=== PATIENT | female | born 1935 | race Caucasian/White ===

== ENCOUNTER 2016-08-01 17:11 | Emergency (ER) | payer MEDICARE ==
[~2016-08-01 17:11] MED LIST: ACET50TA PO; ASPI325T PO; ASPI81CH PO; BISAC5TA PO; COLA50CA3 PO; CORE25TA PO; FOSI PO; HYDR12.55 PO; LATA5OPD OU; PERC7.5T12 PO; SIMV40TA2 PO; SYNT75TA PO; TIMO5OPD OU
--- NOTE | 2016-08-01 18:43 | EDDOCDS ---
Nurse's Notes [facility] Name: Maria Del Rosario Thomas Age: 80 yrs Sex: Female : 1935 Arrival Date: 08/01/2016 Time: 17:11 Bed 18 Private MD: Diagnosis: Foreign body in esophagus-resolved Presentation: 08/01 17:28 Presenting complaint: Patient states: Patient approximately one hour ago choked on jmb meat, second time occurrence. Patient reports feeling better that issue has resolved. Adult Sepsis Screening: The patient does not have new or worsening altered mentation. Patient's respiratory rate is less than 22. Systolic blood pressure is greater than 100. Patient has a qSOFA score of 0- Negative Sepsis Screen. Suicide/Homicide risk assessment- the patient denies having any suicidal and/or homicidal ideations and does not present with any other emotional, behavioral or mental health complaints. Status: Patient is not a sales service supervisor or dependent. Transition of care: patient was not received from another setting of care. 17:28 Acuity: TRACY Level 3 [facility] 17:28 Method Of Arrival: Ambulance [facility] Triage Assessment: 17:35 General: Appears in no apparent distress, Behavior is appropriate for age, cooperative. [facility] Neurological: Level of Consciousness is awake, alert, obeys commands, Oriented to person, place, time. Respiratory: Airway is patent Respiratory effort is even, unlabored, Respiratory pattern is regular, symmetrical. Derm: Skin is pink, warm & dry. Musculoskeletal: Range of motion intact in all extremities. 18:42 Pain: Denies pain. [facility] Historical: - Allergies: an antibiotic; - Home Meds: 1. acetaminophen 650 mg Oral tab 2 tab as needed 2. aspirin 325 mg Oral TbEC 1 tab once daily 3. Dulcolax (bisacodyl) 5 mg Oral TbEC 1 tab as needed 4. docusate sodium 50 mg Oral cap 1 cap 2 times per day 5. fosinopril sodium 10 mg daily 6. hydrochlorothiazide 12.5 mg Oral cap 1 cap once daily 7. timolol maleate 0.5 % Opht drpd 1 drop once daily 8. simvastatin 40 mg Oral tab 1 tab once daily 9. Xalatan 0.005 % Opht drop 1 drop once daily 10. levothyroxine 75 mcg Oral tab 1 tab once daily - PMHx: Hypercholesterolemia; Hypertension; Hypothyroidism; Glaucoma; - PSHx: Appendectomy; - Social history: Smoking status: Patient states was never smoker of tobacco. No barriers to communication noted, The patient speaks fluent Sinhala, Speaks appropriately for age. - Family history: Not pertinent. - : The pt / caregiver states he / she is not on anticoagulants. Home medication list is obtained from the patient, the facility MAR. - Exposure Risk Screening:: None identified. Screenin:39 Screening information is obtained from the patient. Fall risk: No risks identified. jmb Assistance ADL's: requires no assistance with activities of daily living. Abuse/DV Screen: The patient / caregiver reports he/she is: not in a situation that causes fear, pain or injury. Nutritional screening: No deficits noted. Advance Directives: Currently, there is no health care proxy. There is no active DNR order. There is no living will. There is no Power of Guest Services Attendant. home support is adequate. Assessment: 18:06 General: Appears in no apparent distress, comfortable, Behavior is appropriate for age, jmb cooperative, Patient placed on commode to void. NO voiced complaints at this time. . Neurological: Level of Consciousness is awake, alert, obeys commands, Oriented to person, place, time. Respiratory: Airway is patent Respiratory effort is even, unlabored, Respiratory pattern is regular, symmetrical. 18:39 General: Patient instructed on discharge instructions. Patient asked if there were any [facility] questions regarding discharge, patient stated no. signed discharge instructions. Patient discharged in stable condition. . Vital Signs: 17:30 BP 184 / 94; Pulse 90; Resp 20; Temp 97.8(O); Pulse Ox 97% on R/A; Weight 55.34 kg; jml1 Height 5 ft. 0 in. (152.40 cm); Pain 0/10; 18:39 BP 170 / 80; Pulse 88; Resp 18; Temp 98.0(O); Pulse Ox 98% on R/A; Pain 0/10; jmb 17:30 Body Mass Index 23.83 (55.34 kg, 152.40 cm) jml1 Vitals: 17:35 Log In Time N/A - ambulance arrival. [facility] ED Course: 17:12 Patient visited by Tona Capps, Firer Locomotive Crane. deg 17:12 Patient moved to Waiting deg 17:12 Patient moved to 18 deg 17:15 [facility] jo4 17:15 Edy Ly MD is Attending Physician. jo4 17:20 Patient visited by Hellen Win DO. jo4 17:20 Patient visited by Hellen Win DO. jo4 17:29 Triage Initiated jmb 17:31 Patient visited by Eb Bernard. jml1 18:06 Patient visited by Bishop Kong RN. jmb 18:25 [facility] Payment Agreement was scanned into [employer] and attached to record. zo 18:32 Mellissa Mayer RPA-C is Referral Physician. jo4 18:32 Marek Cortez DO is Referral Physician. jo4 18:39 The patient / caregiver is instructed regarding the plan of care and ED course. jmb 18:39 No IV's were initiated during this patient's visit. No procedures done that require jmb assistance. Order Results: There are currently no results for this order. Outcome: 18:32 Discharge ordered by Provider. jo4 18:39 Discharge Assessment: Patient awake, alert and oriented x 3. No cognitive and/or jmb functional deficits noted. Patient verbalized understanding of disposition instructions. Patient awake and alert. obeys commands, Oriented to person, place and time. Patient verbalized understanding of disposition instructions. Patient has no functional deficits. patient administered narcotics - no. The following High Risk Discharge criteria are identified: None. Discharged to home ambulatory, with significant other. Condition: stable. Discharge instructions given to patient, Instructed on discharge instructions, follow up and referral plans. Demonstrated understanding of instructions, Pt was receptive of discharge instructions/ teaching. No special radiology studies were completed. Property sent home with patient. 18:42 Patient left the ED. b Signatures: Tona Capps, Firer Locomotive Crane Unit deg Clarita Allen Jamie jml1 Bishop Kong,AZAEL RN Hellen Murguia DO DO joElissa MTDD
--- NOTE | 2016-08-01 18:43 | EDDOCDS ---
Physician Documentation [facility] Name: Maria Del Rosario Thomas Age: 80 yrs Sex: Female : 1935 Arrival Date: 08/01/2016 Time: 17:11 Bed 18 Private MD: Disposition: 08/01/16 18:32 Discharged to Home/Self Care. Impression: Foreign body in esophagus - resolved. - Condition is Stable. - Medication Reconciliation, Local Pharmacy Hours form. - Follow up: Mellissa Mayer; When: Call to arrange an appointment; Reason: Recheck today's complaints. Follow up: Marek Cortez; When: Call to arrange an appointment; Reason: Further diagnostic work-up, Recheck today's complaints. - Problem is new. - Symptoms are resolved. - Notes: You were evaluated in the emergency department for an episode of choking. You were given something to drink and something soft to eat and you tolerated it well without episodes of choking. Your episode of choking has resolved. You are advised to schedule appointments with Shruthi Mayer and Dr. Cortez. Historical: - Allergies: an antibiotic; - Home Meds: 1. acetaminophen 650 mg Oral tab 2 tab as needed 2. aspirin 325 mg Oral TbEC 1 tab once daily 3. Dulcolax (bisacodyl) 5 mg Oral TbEC 1 tab as needed 4. docusate sodium 50 mg Oral cap 1 cap 2 times per day 5. fosinopril sodium 10 mg daily 6. hydrochlorothiazide 12.5 mg Oral cap 1 cap once daily 7. timolol maleate 0.5 % Opht drpd 1 drop once daily 8. simvastatin 40 mg Oral tab 1 tab once daily 9. Xalatan 0.005 % Opht drop 1 drop once daily 10. levothyroxine 75 mcg Oral tab 1 tab once daily - PMHx: Hypercholesterolemia; Hypertension; Hypothyroidism; Glaucoma; - PSHx: Appendectomy; - Social history: Smoking status: Patient states was never smoker of tobacco. No barriers to communication noted, The patient speaks fluent Nicaraguan, Speaks appropriately for age. - Family history: Not pertinent. - : The pt / caregiver states he / she is not on anticoagulants. Home medication list is obtained from the patient, the facility MAR. - Exposure Risk Screening:: None identified. Vital Signs: 08/01 17:30 BP 184 / 94; Pulse 90; Resp 20; Temp 97.8(O); Pulse Ox 97% on R/A; Weight 55.34 kg / jml1 122 lbs; Height 5 ft. 0 in. (152.40 cm); Pain 0/10; 18:39 BP 170 / 80; Pulse 88; Resp 18; Temp 98.0(O); Pulse Ox 98% on R/A; Pain 0/10; jmb 17:30 Body Mass Index 23.83 (55.34 kg, 152.40 cm) jml1 MDM: 17:48 Fluid Challenge ordered. jo4 17:49 REGULAR DIET ROOM SERVICE ED+DIET ordered. EDMS 17:49 Financial registration complete. zo 18:25 [facility] Payment Agreement was scanned into [employer] and attached to record. zo Signatures: Dispatcher [employer] EDMS Clarita Allen Joshua,RN RN Hellen Murguia DO DO jo4 The chart was reviewed and I authenticate all verbal orders and agree with the evaluation and treatment provided.Attachments: 18:25 [facility] Payment Agreement zo MTDD
--- NOTE | 2016-08-03 19:43 | EDDOCDS ---
Physician Documentation [facility] Name: Maria Del Rosario Thomas Age: 80 yrs Sex: Female : 1935 Arrival Date: 08/01/2016 Time: 17:11 Bed 18 Private MD: Disposition: 08/01/16 18:32 Discharged to Home/Self Care. Impression: Foreign body in esophagus - resolved. - Condition is Stable. - Medication Reconciliation, Local Pharmacy Hours form. - Follow up: Mellissa Mayer; When: Call to arrange an appointment; Reason: Recheck today's complaints. Follow up: Marek Cortez; When: Call to arrange an appointment; Reason: Further diagnostic work-up, Recheck today's complaints. - Problem is new. - Symptoms are resolved. - Notes: You were evaluated in the emergency department for an episode of choking. You were given something to drink and something soft to eat and you tolerated it well without episodes of choking. Your episode of choking has resolved. You are advised to schedule appointments with Shruthi Mayer and Dr. Cortez. Historical: - Allergies: an antibiotic; - Home Meds: 1. acetaminophen 650 mg Oral tab 2 tab as needed 2. aspirin 325 mg Oral TbEC 1 tab once daily 3. Dulcolax (bisacodyl) 5 mg Oral TbEC 1 tab as needed 4. docusate sodium 50 mg Oral cap 1 cap 2 times per day 5. fosinopril sodium 10 mg daily 6. hydrochlorothiazide 12.5 mg Oral cap 1 cap once daily 7. timolol maleate 0.5 % Opht drpd 1 drop once daily 8. simvastatin 40 mg Oral tab 1 tab once daily 9. Xalatan 0.005 % Opht drop 1 drop once daily 10. levothyroxine 75 mcg Oral tab 1 tab once daily - PMHx: Hypercholesterolemia; Hypertension; Hypothyroidism; Glaucoma; - PSHx: Appendectomy; - Social history: Smoking status: Patient states was never smoker of tobacco. No barriers to communication noted, The patient speaks fluent Nicaraguan, Speaks appropriately for age. - Family history: Not pertinent. - : The pt / caregiver states he / she is not on anticoagulants. Home medication list is obtained from the patient, the facility MAR. - Exposure Risk Screening:: None identified. Vital Signs: 08/01 17:30 BP 184 / 94; Pulse 90; Resp 20; Temp 97.8(O); Pulse Ox 97% on R/A; Weight 55.34 kg / jml1 122 lbs; Height 5 ft. 0 in. (152.40 cm); Pain 0/10; 18:39 BP 170 / 80; Pulse 88; Resp 18; Temp 98.0(O); Pulse Ox 98% on R/A; Pain 0/10; jmb 17:30 Body Mass Index 23.83 (55.34 kg, 152.40 cm) jml1 MDM: 17:48 Fluid Challenge ordered. jo4 17:49 REGULAR DIET ROOM SERVICE ED+DIET ordered. EDMS 17:49 Financial registration complete. zo : [facility] Payment Agreement was scanned into [employer] and attached to record. zo 08/02 09:44 T-Sheet-- Draft Copy was scanned into [employer] and attached to record. gb Signatures: Dispatcher [employer] EDGA Maria Del Rosario Hansen, Reg Reg gb Clarita Allen Joshua,RN RN Hellen Murguia DO DO jo4 The chart was reviewed and I authenticate all verbal orders and agree with the evaluation and treatment provided.Attachments: 08/01 18:25 [facility] Payment Agreement zo 08/02 09:44 T-Sheet-- Draft Copy gb Chart Complete MTDD
--- NOTE | 2016-08-03 19:43 | EDDOCDS ---
Physician Documentation [facility] Name: Maria Del Rosario Thomas Age: 80 yrs Sex: Female : 1935 Arrival Date: 08/01/2016 Time: 17:11 Bed 18 Private MD: Disposition: 08/01/16 18:32 Discharged to Home/Self Care. Impression: Foreign body in esophagus - resolved. - Condition is Stable. - Medication Reconciliation, Local Pharmacy Hours form. - Follow up: Mellissa Mayer; When: Call to arrange an appointment; Reason: Recheck today's complaints. Follow up: Marek Cortez; When: Call to arrange an appointment; Reason: Further diagnostic work-up, Recheck today's complaints. - Problem is new. - Symptoms are resolved. - Notes: You were evaluated in the emergency department for an episode of choking. You were given something to drink and something soft to eat and you tolerated it well without episodes of choking. Your episode of choking has resolved. You are advised to schedule appointments with Shruthi Mayer and Dr. Cortez. Historical: - Allergies: an antibiotic; - Home Meds: 1. acetaminophen 650 mg Oral tab 2 tab as needed 2. aspirin 325 mg Oral TbEC 1 tab once daily 3. Dulcolax (bisacodyl) 5 mg Oral TbEC 1 tab as needed 4. docusate sodium 50 mg Oral cap 1 cap 2 times per day 5. fosinopril sodium 10 mg daily 6. hydrochlorothiazide 12.5 mg Oral cap 1 cap once daily 7. timolol maleate 0.5 % Opht drpd 1 drop once daily 8. simvastatin 40 mg Oral tab 1 tab once daily 9. Xalatan 0.005 % Opht drop 1 drop once daily 10. levothyroxine 75 mcg Oral tab 1 tab once daily - PMHx: Hypercholesterolemia; Hypertension; Hypothyroidism; Glaucoma; - PSHx: Appendectomy; - Social history: Smoking status: Patient states was never smoker of tobacco. No barriers to communication noted, The patient speaks fluent Bahamian, Speaks appropriately for age. - Family history: Not pertinent. - : The pt / caregiver states he / she is not on anticoagulants. Home medication list is obtained from the patient, the facility MAR. - Exposure Risk Screening:: None identified. Vital Signs: 08/01 17:30 BP 184 / 94; Pulse 90; Resp 20; Temp 97.8(O); Pulse Ox 97% on R/A; Weight 55.34 kg / jml1 122 lbs; Height 5 ft. 0 in. (152.40 cm); Pain 0/10; 18:39 BP 170 / 80; Pulse 88; Resp 18; Temp 98.0(O); Pulse Ox 98% on R/A; Pain 0/10; jmb 17:30 Body Mass Index 23.83 (55.34 kg, 152.40 cm) jml1 MDM: 17:48 Fluid Challenge ordered. jo4 17:49 REGULAR DIET ROOM SERVICE ED+DIET ordered. EDMS 17:49 Financial registration complete. zo : [facility] Payment Agreement was scanned into [employer] and attached to record. zo 08/02 09:44 T-Sheet-- Draft Copy was scanned into [employer] and attached to record. gb Signatures: Dispatcher [employer] EDWY Maria Del Rosario Hansen, Reg Reg gb Clarita Allen Joshua,RN RN Hellen Murguia DO DO jo4 The chart was reviewed and I authenticate all verbal orders and agree with the evaluation and treatment provided.Attachments: 08/01 18:25 [facility] Payment Agreement zo 08/02 09:44 T-Sheet-- Draft Copy gb Chart Complete MTDD
--- NOTE | 2016-08-03 19:43 | EDDOCDS ---
Nurse's Notes [facility] Name: Maria Del Rosario Thomas Age: 80 yrs Sex: Female : 1935 Arrival Date: 08/01/2016 Time: 17:11 Bed 18 Private MD: Diagnosis: Foreign body in esophagus-resolved Presentation: 08/01 17:28 Presenting complaint: Patient states: Patient approximately one hour ago choked on jmb meat, second time occurrence. Patient reports feeling better that issue has resolved. Adult Sepsis Screening: The patient does not have new or worsening altered mentation. Patient's respiratory rate is less than 22. Systolic blood pressure is greater than 100. Patient has a qSOFA score of 0- Negative Sepsis Screen. Suicide/Homicide risk assessment- the patient denies having any suicidal and/or homicidal ideations and does not present with any other emotional, behavioral or mental health complaints. Status: Patient is not a postal service clerk or dependent. Transition of care: patient was not received from another setting of care. 17:28 Acuity: TRACY Level 3 [facility] 17:28 Method Of Arrival: Ambulance [facility] Triage Assessment: 17:35 General: Appears in no apparent distress, Behavior is appropriate for age, cooperative. [facility] Neurological: Level of Consciousness is awake, alert, obeys commands, Oriented to person, place, time. Respiratory: Airway is patent Respiratory effort is even, unlabored, Respiratory pattern is regular, symmetrical. Derm: Skin is pink, warm & dry. Musculoskeletal: Range of motion intact in all extremities. 18:42 Pain: Denies pain. [facility] Historical: - Allergies: an antibiotic; - Home Meds: 1. acetaminophen 650 mg Oral tab 2 tab as needed 2. aspirin 325 mg Oral TbEC 1 tab once daily 3. Dulcolax (bisacodyl) 5 mg Oral TbEC 1 tab as needed 4. docusate sodium 50 mg Oral cap 1 cap 2 times per day 5. fosinopril sodium 10 mg daily 6. hydrochlorothiazide 12.5 mg Oral cap 1 cap once daily 7. timolol maleate 0.5 % Opht drpd 1 drop once daily 8. simvastatin 40 mg Oral tab 1 tab once daily 9. Xalatan 0.005 % Opht drop 1 drop once daily 10. levothyroxine 75 mcg Oral tab 1 tab once daily - PMHx: Hypercholesterolemia; Hypertension; Hypothyroidism; Glaucoma; - PSHx: Appendectomy; - Social history: Smoking status: Patient states was never smoker of tobacco. No barriers to communication noted, The patient speaks fluent Romansh, Speaks appropriately for age. - Family history: Not pertinent. - : The pt / caregiver states he / she is not on anticoagulants. Home medication list is obtained from the patient, the facility MAR. - Exposure Risk Screening:: None identified. Screenin:39 Screening information is obtained from the patient. Fall risk: No risks identified. jmb Assistance ADL's: requires no assistance with activities of daily living. Abuse/DV Screen: The patient / caregiver reports he/she is: not in a situation that causes fear, pain or injury. Nutritional screening: No deficits noted. Advance Directives: Currently, there is no health care proxy. There is no active DNR order. There is no living will. There is no Power of Pantograph Engraver. home support is adequate. Assessment: 18:06 General: Appears in no apparent distress, comfortable, Behavior is appropriate for age, jmb cooperative, Patient placed on commode to void. NO voiced complaints at this time. . Neurological: Level of Consciousness is awake, alert, obeys commands, Oriented to person, place, time. Respiratory: Airway is patent Respiratory effort is even, unlabored, Respiratory pattern is regular, symmetrical. 18:39 General: Patient instructed on discharge instructions. Patient asked if there were any [facility] questions regarding discharge, patient stated no. signed discharge instructions. Patient discharged in stable condition. . Vital Signs: 17:30 BP 184 / 94; Pulse 90; Resp 20; Temp 97.8(O); Pulse Ox 97% on R/A; Weight 55.34 kg; jml1 Height 5 ft. 0 in. (152.40 cm); Pain 0/10; 18:39 BP 170 / 80; Pulse 88; Resp 18; Temp 98.0(O); Pulse Ox 98% on R/A; Pain 0/10; jmb 17:30 Body Mass Index 23.83 (55.34 kg, 152.40 cm) jml1 Vitals: 17:35 Log In Time N/A - ambulance arrival. [facility] ED Course: 17:12 Patient visited by Tona Capps, Clay Shop Supervisor. deg 17:12 Patient moved to Waiting deg 17:12 Patient moved to 18 deg 17:15 Hellen Win [facility]. jo4 17:15 Edy Ly MD is Attending Physician. jo4 17:20 Patient visited by Hellen Win DO. jo4 17:20 Patient visited by Hellen Win DO. jo4 17:29 Triage Initiated jmb 17:31 Patient visited by Eb Bernard. jml1 18:06 Patient visited by Bishop Kong RN. jmb 18:25 [facility] Payment Agreement was scanned into [employer] and attached to record. zo 18:32 Mellissa Mayer RPA-C is Referral Physician. jo4 18:32 Marek Cortez DO is Referral Physician. jo4 18:39 The patient / caregiver is instructed regarding the plan of care and ED course. jmb 18:39 No IV's were initiated during this patient's visit. No procedures done that require jmb assistance. 08/02 09:44 T-Sheet-- Draft Copy was scanned into [employer] and attached to record. gb Order Results: There are currently no results for this order. Outcome: 08/01 18:32 Discharge ordered by Provider. jo4 18:39 Discharge Assessment: Patient awake, alert and oriented x 3. No cognitive and/or jmb functional deficits noted. Patient verbalized understanding of disposition instructions. Patient awake and alert. obeys commands, Oriented to person, place and time. Patient verbalized understanding of disposition instructions. Patient has no functional deficits. patient administered narcotics - no. The following High Risk Discharge criteria are identified: None. Discharged to home ambulatory, with significant other. Condition: stable. Discharge instructions given to patient, Instructed on discharge instructions, follow up and referral plans. Demonstrated understanding of instructions, Pt was receptive of discharge instructions/ teaching. No special radiology studies were completed. Property sent home with patient. 18:42 Patient left the ED. lonny Signatures: Tona Capps, Clay Shop Supervisor Unit deg Maria Del Rosario Hansen, Reg Reg gb Alejandro, Carolineeann zo Eb Bernard jml1 Bishop Kong,AZAEL RN Hellen Murguia DO DO jo4 Chart Complete MTDD
== END 2016-08-01 18:42 | disposition home or self-care (01) ==
LOC: M ED 17:11
DX: R09.89 Other specified symptoms and signs involving the circulatory and respiratory systems (principal); I10 Essential (primary) hypertension; E03.9 Hypothyroidism, unspecified; L40.9 Psoriasis, unspecified; E78.00 Pure hypercholesterolemia, unspecified; Z90.89 Acquired absence of other organs; Z79.82 Long term (current) use of aspirin; Z79.899 Other long term (current) drug therapy; Z88.1 Allergy status to other antibiotic agents

== ENCOUNTER → 2016-08-10 | Outpatient (REF) | payer MEDICARE ==
[2016-08-10 19:01] LABS: CALCIUM OXALATE CRYSTALS SMALL
[2016-08-10 19:12] LABS: TOTAL PROTEIN 7.5 GM/DL (6.4-8.2)
[2016-08-11 13:52] LABS: ALBUMIN 4.45 GM/DL (3.29-5.55); ALBUMIN % 59.3 % (55.8-66.1); GAMMA GLOBULIN % 12.9 % (11.1-18.8)
== END | disposition home or self-care (01) ==
LOC: M SFHCADAM 14:38
PROVIDERS: ATTEND Physician Assistant
DX: D75.89 Other specified diseases of blood and blood-forming organs (principal); R32 Unspecified urinary incontinence; G20 Parkinson's disease; R53.83 Other fatigue; Z79.82 Long term (current) use of aspirin; Z79.899 Other long term (current) drug therapy
CPT/HCPCS: 81001; 82306; 84165; 87086; G0463

== ENCOUNTER → 2016-08-23 | Outpatient (CLI) | payer MEDICARE ==
[~2016-08-23] MED LIST changes: +E-Z-GAS II EFFERVESCENT PACKET (SODIUM BICARB./CITRIC ACID/SIMETHICONE) As Ordered ONE; +E-Z-HD 98% w/w 340GM SUSP BTL As Ordered ONE; +E-Z-PAQUE 96% w/w SUSP 176GM BTL As Ordered ONE
--- NOTE | 2016-08-23 19:18 | REP ---
UPPER GI, AIR CONTRAST: The procedure was performed under the direct supervision of Dr. Olguin. The images were reviewed with Dr. Olguin. The boat finisher film shows no organomegaly or pathological masses. The intestinal gas pattern is nonspecific. There are degenerative changes of the spine. There are fragmented surgical sutures noted overlying the abdomen consistent with the patient's history of remote abdominal surgery. Liquid barium and gas-producing granules were given in the erect position as well as liquid barium in the prone oblique position in order to perform a double-contrast upper GI examination. The oral and pharyngeal stage of deglutition are unremarkable. During esophageal transport there are tertiary waves demonstrated. There is no esophagitis, stricture or mucosal ring. There is a large hiatal hernia present. There is gastroesophageal reflux demonstrated to above the level of the janay. The stomach gloria are normally outlined. The rugal folds are smooth and regular. There is no gastritis, neoplasm, or ulcer disease. The duodenal gloria are normally outlined. The mucosal folds are smooth and regular. There is no duodenitis, pancreatitis, peptic ulcer disease, or neoplasm. The visualized portion of the proximal small bowel appears normal in course and caliber. IMPRESSION: 1. Esophageal dysmotility. 2. There is a large hiatal hernia present. There is gastroesophageal reflux demonstrated to above the level of the janay. 2 minutes and 11 seconds of fluoroscopic time was utilized for this procedure. Reviewed by TAMIKA Juarez 08/24/2016 03:44 PEdited and Signed by Marek Olguin MD 08/25/2016 09:53 A
== END | disposition home or self-care (01) ==
LOC: M RAD 08:31
PROVIDERS: ATTEND Surgery
DX: K44.9 Diaphragmatic hernia without obstruction or gangrene (principal); K21.9 Gastro-esophageal reflux disease without esophagitis; K22.4 Dyskinesia of esophagus

== ENCOUNTER → 2016-09-14 | Outpatient (CLI) | payer MEDICARE ==
[~2016-09-14] VITALS: Ht 152.4 cm; Wt 55.3 kg
[~2016-09-14] MED LIST changes: +ASPI1TAB PO; +CENTTAB PO; -E-Z-GAS II EFFERVESCENT PACKET (SODIUM BICARB./CITRIC ACID/SIMETHICONE) As Ordered ONE; -E-Z-HD 98% w/w 340GM SUSP BTL As Ordered ONE; -E-Z-PAQUE 96% w/w SUSP 176GM BTL As Ordered ONE; +LIDOCAINE 2% INJ 100 MG/5 ML SDV (FOR ANES.) As Ordered ONE; +LISI-538 PO; +NS 1,000 ML IV SCH; +PROPOFOL 200 MG/20 ML VIAL As Ordered ONE; +VITA200015 PO; +VITA50003 PO
--- NOTE | 2016-09-14 10:58 | ROOR ---
Patient Name: Maria Del Rosario Thomas Procedure Date: 09/14/2016 10:39 AM Date of : 1935 Age: 80 Room: [facility] Gender: Female Note Status: Finalized Procedure: Upper GI endoscopy Indications: Dysphagia Providers: DO Dionicio Collins MD: FABI Restrepo Requesting Provider: Medicines: Propofol per Anesthesia Complications: No immediate complications. Procedure: Pre-Anesthesia Assessment: - Prior to the procedure, a History and Physical was performed, and patient medications and allergies were reviewed. The patient is competent. The risks and benefits of the procedure and the sedation options and risks were discussed with the patient. All questions were answered and informed consent was obtained. Patient identification and proposed procedure were verified by the physician, the nurse, the anesthesiologist and the critical systems technician in the endoscopy suite. Mental Status Examination: alert and oriented. Airway Examination: normal oropharyngeal airway and neck mobility. Respiratory Examination: clear to auscultation. CV Examination: normal. Prophylactic Antibiotics: The patient does not require prophylactic antibiotics. Prior Anticoagulants: The patient has taken no previous anticoagulant or antiplatelet agents. ASA Grade Assessment: III - A patient with severe systemic disease. After reviewing the risks and benefits, the patient was deemed in satisfactory condition to undergo the procedure. The anesthesia plan was to use monitored anesthesia care (MAC). Immediately prior to administration of medications, the patient was re-assessed for adequacy to receive sedatives. The heart rate, respiratory rate, oxygen saturations, blood pressure, adequacy of pulmonary ventilation, and response to care were monitored throughout the procedure. The physical status of the patient was re-assessed after the procedure. The Endoscope was introduced through the mouth, and advanced to the second part of duodenum. The upper GI endoscopy was accomplished without difficulty. The patient tolerated the procedure well. Findings: A large hiatal hernia was present. A 10 cm hiatal hernia was present. Diffuse minimal inflammation characterized by congestion (edema) and erythema was found in the prepyloric region of the stomach. Biopsies were taken with a cold forceps for Helicobacter pylori testing. The exam was otherwise without abnormality. Impression: - Large hiatal hernia. - 10 cm hiatal hernia. - Gastritis. Biopsied. - The examination was otherwise normal. Recommendation: - Patient has a contact number available for emergencies. The signs and symptoms of potential delayed complications were discussed with the patient. Return to normal activities tomorrow. Written discharge instructions were provided to the patient. - Telephone my office for pathology results in 1 week. - Return to my office in 1 week. Marek Cortez DO 09/14/2016 10:58:07 AM This report has been signed electronically. Number of Addenda: 0 Note Initiated On: 09/14/2016 10:39 AM Estimated Blood Loss: Estimated blood loss was minimal.
[2016-09-14 11:20] VITALS: BP 178/86
== END ==
LOC: M OPP 08:38
PROVIDERS: ATTEND Surgery
DX: R13.10 Dysphagia, unspecified (principal); K44.9 Diaphragmatic hernia without obstruction or gangrene; K29.70 Gastritis, unspecified, without bleeding; I10 Essential (primary) hypertension; H40.9 Unspecified glaucoma; R94.31 Abnormal electrocardiogram [ECG] [EKG]; E03.9 Hypothyroidism, unspecified; M19.90 Unspecified osteoarthritis, unspecified site; Z95.5 Presence of coronary angioplasty implant and graft; Z86.79 Personal history of other diseases of the circulatory system; Z86.73 Personal history of transient ischemic attack (TIA), and cerebral infarction without residual deficits; Z79.82 Long term (current) use of aspirin; Z79.899 Other long term (current) drug therapy; Z88.0 Allergy status to penicillin

== ENCOUNTER → 2016-12-13 | Outpatient (REF) | payer MEDICARE ==
[~2016-12-13] MED LIST changes: -LIDOCAINE 2% INJ 100 MG/5 ML SDV (FOR ANES.) As Ordered ONE; -NS 1,000 ML IV SCH; -PROPOFOL 200 MG/20 ML VIAL As Ordered ONE
[2016-12-13 20:00] LABS: MEAN CORPUSCULAR HEMOGLOBIN 34.9 pg (27.0-33.0); MEAN CORPUSCULAR HGB CONC 33.8 g/dl (32.0-36.5); MEAN CORPUSCULAR VOLUME 103.4 fl (80.0-96.0); WHITE BLOOD COUNT 7.2 K/mm3 (4.0-10.0)
[2016-12-13 20:16] LABS: ALBUMIN 3.8 GM/DL (3.2-5.2); ALBUMIN/GLOBULIN RATIO 1.12 (1.00-1.93); ALKALINE PHOSPHATASE 114 U/L (45-117); ALT/SGPT 32 U/L (12-78); ANION GAP 11 MEQ/L (8-16); AST/SGOT 29 U/L (15-37); BILIRUBIN,TOTAL 0.7 MG/DL (0.2-1.0); BLOOD UREA NITROGEN 20 MG/DL (7-18); CALCIUM LEVEL 9.4 MG/DL (8.8-10.2); CARBON DIOXIDE LEVEL 29 MEQ/L (21-32); CHLORIDE LEVEL 105 MEQ/L (98-107); CHOLESTEROL LEVEL 191 MG/DL (<200); CREATININE FOR GFR 0.92 MG/DL (0.55-1.02); FREE T4 1.36 NG/DL (0.76-1.46); GLOMERULAR FILTRATION RATE > 60.0 (>32); GLUCOSE, FASTING 89 MG/DL (83-110); SODIUM LEVEL 145 MEQ/L (136-145); TOTAL PROTEIN 7.2 GM/DL (6.4-8.2); TRIGLYCERIDES LEVEL 75 MG/DL (<150)
== END ==
LOC: M SFHCADAM 14:48
PROVIDERS: ATTEND Family Medicine
DX: I25.10 Atherosclerotic heart disease of native coronary artery without angina pectoris (principal); E78.5 Hyperlipidemia, unspecified; E03.9 Hypothyroidism, unspecified; E55.9 Vitamin D deficiency, unspecified
CPT/HCPCS: 80053; 80061; 82306; 84439; 84443; 85027; 90732; G0463

== ENCOUNTER → 2017-04-26 | Outpatient (REF) | payer MEDICARE ==
[~2017-04-26] MED LIST changes: +Acetaminophen Tab PO; +CITA10TA5; +CITA10TA5 PO; +LISI-542 PO; +PRAV10TA4 PO; +TIMO0.5S29 OU; +VITA1CAP40 PO; -VITA50003 PO; +VITMTA PO
[2017-04-26 20:54] LABS: MEAN CORPUSCULAR HEMOGLOBIN 33.8 pg (27.0-33.0); MEAN CORPUSCULAR HGB CONC 31.9 g/dl (32.0-36.5); RED CELL DISTRIBUTION WIDTH 13.4 % (11.5-14.5); WHITE BLOOD COUNT 6.5 10^3/uL (4.0-10.0)
[2017-04-26 21:40] LABS: ALBUMIN 3.8 GM/DL (3.2-5.2); ALBUMIN/GLOBULIN RATIO 1.27 (1.00-1.93); ALKALINE PHOSPHATASE 145 U/L (45-117); ALT/SGPT 35 U/L (12-78); ANION GAP 8 MEQ/L (8-16); AST/SGOT 27 U/L (15-37); BILIRUBIN,TOTAL 0.3 MG/DL (0.2-1.0); BLOOD UREA NITROGEN 18 MG/DL (7-18); CALCIUM LEVEL 9.1 MG/DL (8.8-10.2); CARBON DIOXIDE LEVEL 30 MEQ/L (21-32); CHLORIDE LEVEL 105 MEQ/L (98-107); CREATININE FOR GFR 0.88 MG/DL (0.55-1.02); FREE T4 1.13 NG/DL (0.76-1.46); GLOMERULAR FILTRATION RATE > 60.0 (>32); GLUCOSE, FASTING 93 MG/DL (83-110); POTASSIUM SERUM 4.3 MEQ/L (3.5-5.1); SODIUM LEVEL 143 MEQ/L (136-145); TOTAL PROTEIN 6.8 GM/DL (6.4-8.2)
== END ==
LOC: M SFHCADAM 14:54
PROVIDERS: ATTEND Family Medicine
DX: F32.2 Major depressive disorder, single episode, severe without psychotic features (principal); R73.01 Impaired fasting glucose; E03.9 Hypothyroidism, unspecified; E55.9 Vitamin D deficiency, unspecified

== ENCOUNTER 2017-04-29 10:43 | Inpatient (IN) | payer MEDICARE ==
[~2017-04-29] VITALS: Ht 165.1 cm; Wt 54.2 kg
[~2017-04-29 10:43] MED LIST changes: -Acetaminophen Tab PO; -CITA10TA5; -CITA10TA5 PO; -LISI-542 PO; -PRAV10TA4 PO; -TIMO0.5S29 OU; -VITMTA PO
[2017-04-29] MEDS ORDERED: CITA10TA5 (11:11)
[2017-04-29 12:12] LABS: BASO % 0.5 % (0.0-1.0); EOS # 0.1 10^3/uL (0.0-0.50); EOS % 1.1 % (0.0-3.0); IMMATURE GRANULOCYTE % 0.3 % (0-0); LYMPH # 1.9 10^3/uL (1.5-4.5); LYMPH % 23.7 % (24.0-44.0); MEAN CORPUSCULAR HEMOGLOBIN 33.9 pg (27.0-33.0); MEAN CORPUSCULAR HGB CONC 32.3 g/dl (32.0-36.5); MONO # 0.9 10^3/uL (0.0-0.8); NEUTROPHILS % 63.4 % (36.0-66.0); PLATELET COUNT, AUTOMATED 309 10^3/uL (150-450); RED CELL DISTRIBUTION WIDTH 13.3 % (11.5-14.5); WHITE BLOOD COUNT 7.8 10^3/uL (4.0-10.0)
[2017-04-29 12:16] LABS: ADD MORPHOLOGY? YES; MEAN CORPUSCULAR VOLUME 105.2 fl (80.0-96.0); POSITIVE MORPH POS FLAG
--- NOTE | 2017-04-29 12:36 | REP ---
CT of the brain without IV contrast: Comparison is 01/01/2015. There is no hemorrhage. There is no edema, mass effect or midline shift. Cortical stripe is unremarkable. The ventricles and sulci are dilated, unchanged, compatible with diffuse volume loss. There are bilateral basal ganglia calcifications, unchanged, likely physiologic. Calcified vascular atheroma is again identified in the carotid siphons, unchanged. The visualized paranasal sinuses and mastoid air cells are clear. Impression: There is no hemorrhage, acute infarct or mass. There are basal ganglia calcifications, likely physiologic. There are vascular atheromatous calcifications. There is chronic diffuse volume loss. No change from the prior study. Signed by Marek Amos MD 04/29/2017 12:27 P
--- NOTE | 2017-04-29 12:38 | REP ---
Chest a single AP view: Comparisons 07/06/2015. The lung wen are clear. The cardiac size is normal The grace, mediastinum, and bony thorax are unremarkable. Impression: Negative AP chest. There is no interval change Signed by Marek Amos MD 04/29/2017 12:30 P
[2017-04-29 12:42] LABS: ANION GAP 5 MEQ/L (8-16); BLOOD UREA NITROGEN 19 MG/DL (7-18); CALCIUM LEVEL 8.8 MG/DL (8.8-10.2); CARBON DIOXIDE LEVEL 30 MEQ/L (21-32); CHLORIDE LEVEL 106 MEQ/L (98-107); CREATININE FOR GFR 0.93 MG/DL (0.55-1.02); GLOMERULAR FILTRATION RATE > 60.0 (>32); GLUCOSE, FASTING 96 MG/DL (83-110); POTASSIUM SERUM 3.7 MEQ/L (3.5-5.1); SODIUM LEVEL 141 MEQ/L (136-145)
--- NOTE | 2017-04-29 15:06 | REP ---
CT of the lumbar spine: Axial images are acquired and are reformatted sagittal coronal projections. There are no comparison studies. Vertebral body heights are normal. There is degenerative disc disease at every lumbar level with advanced degenerative disc disease and disc vacuum phenomenon at L1-2 and L2-3. There is grade 1 retrolisthesis of L1 and L2. There are no focal disc protrusions. There is broad-based posterior disc bulging at 3-4 and L4-5. There is mild spinal stenosis from facet hypertrophy and broad-based posterior disc bulging at L3-4 and L4-5. There are no lytic, blastic or destructive skeletal changes. There is facet osteoarthritis. Recommend follow-up MRI. Signed by Marek Amos MD 04/29/2017 02:58 P
[2017-04-29] MEDS ORDERED: NS 500 ML IV ONE (15:15)
[2017-04-29] MEDS ORDERED: LATA5OPD OU (16:43)
[2017-04-29] MEDS ORDERED: SYNT75TA PO (16:43)
[2017-04-29] MEDS ORDERED: PRAV10TA4 PO (16:43)
[2017-04-29] MEDS ORDERED: TIMO0.5S29 OU (16:43)
[2017-04-29] MEDS ORDERED: ASPI1TAB PO (16:43)
[2017-04-29] MEDS ORDERED: LISI-542 PO (16:43)
[2017-04-29] MEDS ORDERED: CITA10TA5 PO (16:43)
[2017-04-29] MEDS ORDERED: VITMTA PO (16:44)
[2017-04-29 19:45] VITALS: BP 129/61
--- NOTE | 2017-04-29 20:13 | HPEPDOC ---
[facility] Medical History & Physical Date of Admission Apr 29, 2017 Primary Care Physician: Josué Mayer MD Attending Physician: Fortunato Frank MD History and Physical CHIEF COMPLAINT: Weakness, falls HISTORY OF PRESENT ILLNESS: This is a 81-year-old female presenting today in the emergency department accompanied by her son and niece. She complains of falls and new onset weakness in the lower extremities. Patient has a past medical history significant for hypertension, hypothyroidism, CAD status post DC 2010, hyperlipidemia, urge incontinence, cataracts, macrocytic anemia, and Parkinson's disease. Patient recalls that she fell after getting out of bed yesterday morning. She states that her legs felt weak after bending over to pecan picker her coat. She denies hitting her head. Patient's floor is carpeted. She was on the floor for about 4-5 hours before family sat her up on a chair. She fell again trying to get out of the chair later in the afternoon. She was on the floor for about 30 minutes before being found by her grandson. Patient was recently seen by Dr. Mayre on 04/26/2017. At the time, she was ambulating with a walker. She started feeling weak in her legs for the last 2 days. Patient was recently living in [place] for about 3 months with her . Her on 03/29/2017. Shortly afterwards, patient relocated back to [place]. She was evaluated for Parkinson's disease in [place] and was started on Sinemet. She became confused and agitated on the medication. Ultimately, she ended up in an inpatient mental health unit in [place] in February. Sinemet has been since discontinued. The patient's healthcare proxy is her son, Braxton Thomas ([phone]). The patient expressed her wish for DNR status, and signed a MOLST form. PAST MEDICAL HISTORY: 1. Hypertension. 2. Hypothyroidism. 3. CAD status post DC in 2010. 4. Carotid disease 5. Aortic sclerosis with ejection fraction 60-65% 6. Macrocytic anemia 7. Parkinson's disease 8. Depression PAST SURGICAL HISTORY: 1. Appendectomy. 2. Hysterectomy. 3. Right ankle fracture repair. SOCIAL HISTORY: Marital status: With a. Tobacco use: Former smoker ETOH: none Illicit drug use: denies IV drug use: denies FAMILY HISTORY: Father had heart disease, mother had breast cancer ALLERGIES: Please see below. REVIEW OF SYSTEMS: Constitutional: Denies fevers, chills HEENT: Denies head trauma, changes in vision, headaches Cardiovascular: Denies chest pain, shortness of breath Respiratory: Denies dyspnea, wheezing Gastrointestinal: Denies nausea, vomiting, abdominal pain, diarrhea, constipation Skin: Denies rashes Neurological: Positive history of Parkinson's disease Psych: Positive history of depression Musculoskeletal: Positive for Lower extremity weakness HOME MEDICATIONS: Please see below. PHYSICAL EXAMINATION: General: ill-appearing, comfortable, in no acute distress. HEENT: Head is atraumatic, eyes: EOMI, PERRLA. CARDIOVASCULAR: Systolic murmur, bradycardic. RESPIRATORY: Clear bilaterally, no wheezes. GASTROINTESTINAL: Soft, nontender, normal bowel sounds are heard throughout. SKIN: Warm, dry. NEUROLOGICAL: Cranial nerves II through XII grossly intact, strength of legs 4/5 ; otherwise 5/5 throughout; cogwheel rigidity in left arm and lead piping. PSYCHIATRIC: Flat affect, alert and oriented. LABORATORY DATA: See below. IMAGING: Imaging studies 04/29/[address]: No hemorrhage, acute infarct or mass. Chronic diffuse volume loss, no change from prior. Chest x-ray: No acute disease. Lumbar spine CT: "Vertebral body heights are normal. There is degenerative disc disease at every lumbar level with advanced degenerative disc disease and disc vacuum phenomenon at L1-2 and L2-3. There is grade 1 retrolisthesis of L1 and L2. There are no focal disc protrusions. There is broad-based posterior disc bulging at 3-4 and L4-5.There is mild spinal stenosis from facet hypertrophy and broad-based posterior disc bulging at L3-4 and L4-5.There are no lytic, blastic or destructive skeletal changes.There is facet osteoarthritis." ASSESSMENT: This is a 81-year-old female with rhabdomyolysis, prerenal azotemia , lower extremity weakness and bradycardia. PLAN: 1. Rhabdomyolysis. Patient was given 500 mL bolus of normal saline in the ED. Holding IV fluids at this time as patient remains hypertensive. We will continue to trend CK. 2. Prerenal azotemia. Mild, will continue to trend. 3. Bradycardia. Will place patient on telemetry. 4. DNR status 5. Lower extremity weakness. Will have patient evaluated by physical therapy. 6. Will have PFS consult for possible placement or services. 7. Low fat diet 8. Parkinson disease. Chronic 9. Htn. Continue home medications 10. CAD. Continue pravastatin and aspirin Vital Signs Vital Signs Date Time Temp Pulse Resp B/P (MAP) Pulse Ox O2 Delivery O2 Flow Rate FiO2 04/29/17 13:58 50 18 96 Room Air 04/29/17 11:39 04/29/17 11:02 98.4 Laboratory Data Labs 24H Laboratory Tests 2 04/29/17 11:55: Immature Granulocyte % (Auto) 0.3H, White Blood Count 7.8, Red Blood Count 3.86L , Hemoglobin 13.1, Hematocrit 40.6, Mean Corpuscular Volume 105.2H, Mean Corpuscular Hemoglobin 33.9H, Mean Corpuscular Hemoglobin Concent 32.3, Red Cell Distribution Width 13.3, Platelet Count 309, Neutrophils (%) (Auto) 63.4, Lymphocytes (%) (Auto) 23.7L, Monocytes (%) (Auto) 11.0H, Eosinophils (%) (Auto ) 1.1, Basophils (%) (Auto) 0.5, Neutrophils # (Auto) 5.0, Lymphocytes # (Auto) 1.9, Monocytes # (Auto) 0.9H, Eosinophils # (Auto) 0.1, Basophils # (Auto) 0.0, Immature Granulocyte # (Auto) 0.0, Nucleated Red Blood Cells % (auto) 0.0, Platelet Estimate NORMAL, Red Blood Cell Morphology NORMAL, Anion Gap 5L, Glomerular Filtration Rate > 60.0, Blood Urea Nitrogen 19H, Creatinine 0.93, Sodium Level 141, Potassium Level 3.7, Chloride Level 106, Carbon Dioxide Level 30, Calcium Level 8.8, Total Creatine Kinase 1206H 04/29/17 12:52: Urine Myoglobin NEGATIVE 04/29/17 13:03: Urine Appearance CLEAR, Urine Color YELLOW, Urine pH 6.0, Urine Specific [place] 1.004, Urine Protein NEGATIVE, Urine Glucose (UA) NEGATIVE, Urine Ketones NEGATIVE, Urine Urobilinogen 0.2, Urine Bilirubin NEGATIVE, Urine Leukocyte Esterase TRACEH, Urine Blood NEGATIVE, Urine Nitrite NEGATIVE, Urine WBC (Auto) 5H, Urine RBC (Auto) 0, Urine Hyaline Casts (Auto) 0, Urine Bacteria (Auto) NEGATIVE, Urine Squamous Epithelial Cells 0, Urine Sperm (Auto) CBC/BMP Laboratory Tests 04/29/17 11:55 Red Blood Count 3.86 L, Mean Corpuscular Volume 105.2 H, Mean Corpuscular Hemoglobin 33.9 H, Mean Corpuscular Hemoglobin Concent 32.3, Red Cell Distribution Width 13.3, Neutrophils (%) (Auto) 63.4, Lymphocytes (%) (Auto) 23.7 L, Monocytes (%) (Auto) 11.0 H, Eosinophils (%) (Auto) 1.1, Basophils (%) ( Auto) 0.5, Neutrophils # (Auto) 5.0, Lymphocytes # (Auto) 1.9, Monocytes # (Auto ) 0.9 H, Eosinophils # (Auto) 0.1, Basophils # (Auto) 0.0, Calcium Level 8.8 Microbiology Microbiology 04/29/17 Urine Culture, Received Pending Home Medications Scheduled Aspirin (Aspirin 81) 81 Mg Tab, 81 MG PO DAILY Citalopram Hydrobromide (Citalopram Hydrobromide) 10 Mg Tab, 10 MG PO DAILY Latanoprost (Latanoprost) 50 Drop/2.5 Ml Soln, 1 DROP OU QHS Levothyroxine Sodium (Synthroid) 75 Mcg Tab, 75 MCG PO DAILY Lisinopril (Lisinopril) 5 Mg Tab, 5 MG PO DAILY Multivitamins *[facility] STOCKED* (Thera M Plus *[facility] STOCKED*) 1 Tab Tab, 1 TAB PO DAILY Pravastatin Sod (Pravastatin Sodium) 10 Mg Tab, 10 MG PO QHS Timolol Maleate (Timolol Maleate) 0.5 % Mary, 1 DROP OU DAILY Scheduled PRN [Acetaminophen Tab] 325 MG/TAB TAB, 650 MG PO Q6HP PRN for PAIN / FEVER Allergies Coded Allergies: Amoxicillin (Verified Allergy, Unknown, 11/12/14) Clavulanic Acid (Verified Allergy, Unknown, 11/12/14) Carbidopa w/Levodopa (Verified Adverse Reaction, Intermediate, 04/30/17) change in mental status; increased aggression GME ATTESTATION GME ATTESTATION My preceptor for this patient encounter was physically present in the building during the encounter and was fully available. As needed, all aspects of the patient interview, examination, medical decision making process, and medical care plan development were reviewed and approved by the preceptor. Preceptor is aware and concurs with the plan as stated in the body of this note and will attest to such by his/her cosignature. ATTENDING NOTE Family Medicine Attending Note: I was present on site to supervise Alonzo Cage DO (PGY-2). We discussed the history and exam. I confirmed the williamson elements during my [id number] encounter with the patient. We conferred on the assessment and plan; I agree with the note as documented. 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
[2017-04-29] MEDS: PRAVASTATIN 10 MG TAB PO SCH (21:19)
[2017-04-29] MEDS: LATANOPROST 0.005% OPHTH SOLN 2.5 ML OU SCH (21:49)
[2017-04-30] MEDS: LEVOTHYROXINE 75MCG TABLET (0.075MG) PO SCH (05:50)
[2017-04-30 06:00] VITALS: BP 133/74
[2017-04-30 06:34] LABS: ALBUMIN 3.1 GM/DL (3.2-5.2); ALBUMIN/GLOBULIN RATIO 1.29 (1.00-1.93); ALKALINE PHOSPHATASE 116 U/L (45-117); ALT/SGPT 35 U/L (12-78); ANION GAP 7 MEQ/L (8-16); AST/SGOT 51 U/L (15-37); BILIRUBIN,TOTAL 0.4 MG/DL (0.2-1.0); BLOOD UREA NITROGEN 15 MG/DL (7-18); CALCIUM LEVEL 8.2 MG/DL (8.8-10.2); CARBON DIOXIDE LEVEL 28 MEQ/L (21-32); CHLORIDE LEVEL 108 MEQ/L (98-107); CREATININE FOR GFR 0.69 MG/DL (0.55-1.02); GLOMERULAR FILTRATION RATE > 60.0 (>32); GLUCOSE, FASTING 94 MG/DL (83-110); POTASSIUM SERUM 3.6 MEQ/L (3.5-5.1); SODIUM LEVEL 143 MEQ/L (136-145); TOTAL PROTEIN 5.5 GM/DL (6.4-8.2)
[2017-04-30] MEDS: CitaloPRAM (CeleXA) 10 MG TABLET PO SCH (08:11)
[2017-04-30] MEDS: MULTIVITAMINS/MINERALS THERAP 1 TAB PO SCH (08:12)
[2017-04-30] MEDS: ASPIRIN 81 MG ENTERIC TAB PO SCH (08:12)
[2017-04-30] MEDS: LISINOPRIL 5 MG TAB PO SCH (08:12)
[2017-04-30] MEDS: TIMOLOL MALEATE 0.5% OPHTH SOLN 5 ML OU SCH (08:13)
[2017-04-30] MEDS: ACETAMINOPHEN TAB 650MG DOSE (2X325MG) PO PRN (11:59)
--- NOTE | 2017-04-30 16:29 | IPNPDOC ---
Subjective Date Seen The patient was seen on 04/30/17. Subjective Chief Complaint/HPI The patient is a 81-year-old female admitted with a reason for visit of Rhabdomyolysis. Events since last encounter Ms. Thomas has no complaints. Nursing has been concerned that her HR has dipped into the 40s, but she has been asymptomatic. General: Reports: Normal Appetite Pulmonary: Denies: Cough Cardiovascular: Denies: Chest Pain, Lt Headedness Psych: Reports: Other Psych (flat affect) Objective Physical Examination General Exam: Positive: Alert, No Acute Distress Eye Exam: Negative: Sclera icteric ENT Exam: Positive: Atraumatic Neck Exam: Negative: Lymphadenopathy Chest Exam: Positive: Clear to auscultation, Normal air movement Heart Exam: Positive: Bradycardic, Regular Rhythm, Murmurs (3/6 holosystolic murmur with prominent S2 noted loudest at the LUSB with radiation to the carotids) Telemetry: Positive: Bradycardia Abdomen Exam: Positive: Normal bowel sounds, Soft, Negative: Tenderness Extremity Exam: Negative: Edema Neuro Exam: Positive: Other (slow, purposful, but leaden movements) Psych Exam: Positive: Memory Intact, Other (flat affect), Negative: Anxiety Assessment /Plan Problems (1) Rhabdomyolysis Status: Acute Response to Treatment: Improving Problem Text: Her CK is down to the 700s today. Continue to monitor. (2) Bradycardia Status: Chronic Response to Treatment: Stable Discussed With: Nurse, Patient Problem Specific Plan: Monitor Clinically Problem Text: I suspect that this relates to her Parkinson's and she is asymptomatic. No pauses noted on tele. Will continue to monitor for now. (3) Parkinson's disease Status: Chronic Response to Treatment: Progressing Problem Text: Most if not all of her acute problems are related to her chronic PD. Finding the right living situation for her after this acute admission will be a very important task for her ongoing health. (4) Hypertension Status: Chronic Response to Treatment: Stable Problem Text: Her BP is stable on her current regimen. Continue current medications, monitor. (5) Prerenal renal failure Status: Resolved Plan/VTE VTE Prophylaxis Ordered?: Yes (SCDs/TEDS) VS, I&O, 24H, Fishbone Vital Signs/I&O Vital Signs Date Time Temp Pulse Resp B/P (MAP) Pulse Ox O2 Delivery O2 Flow Rate FiO2 04/30/17 14:00 98.3 59 18 97 Room Air 04/30/17 08:12 133/74 I&O- Last 24 Hours up to 6 AM 05/01/17 06:00 Intake Total 360 ml Output Total 825 ml Balance -465 ml Laboratory Data 24H LABS Laboratory Tests 2 04/30/17 05:51: Anion Gap 7L, Glomerular Filtration Rate > 60.0, Blood Urea Nitrogen 15, Creatinine 0.69, Sodium Level 143, Potassium Level 3.6, Chloride Level 108H, Carbon Dioxide Level 28, Calcium Level 8.2L, Aspartate Amino Transf (AST/SGOT) 51H, Alanine Aminotransferase (ALT/SGPT) 35, Total Creatine Kinase 703H, Alkaline Phosphatase 116, Total Bilirubin 0.4, Total Protein 5.5L, Albumin 3.1L , Albumin/Globulin Ratio 1.29 04/30/17 06:55: Urine Appearance CLEAR, Urine Color YELLOW, Urine pH 6.0, Urine Specific [place] 1.008, Urine Protein NEGATIVE, Urine Glucose (UA) NEGATIVE, Urine Ketones TRACEH, Urine Urobilinogen 0.2, Urine Bilirubin NEGATIVE, Urine Leukocyte Esterase NEGATIVE, Urine Blood NEGATIVE, Urine Nitrite NEGATIVE, Urine WBC (Auto) 3, Urine RBC (Auto) 1, Urine Hyaline Casts (Auto) 0, Urine Bacteria (Auto) NEGATIVE, Urine Squamous Epithelial Cells 0, Urine Mucus (Auto) SMALL, Urine Sperm (Auto) CBC/BMP Laboratory Tests 04/30/17 05:51 Calcium Level 8.2 L, Aspartate Amino Transf (AST/SGOT) 51 H, Alanine Aminotransferase (ALT/SGPT) 35, Total Creatine Kinase 703 H, Alkaline Phosphatase 116, Total Bilirubin 0.4, Total Protein 5.5 L, Albumin 3.1 L Microbiology Microbiology 04/29/17 Urine Culture, Received Pending Fortunato Frank MD Apr 30, 2017 16:29
[2017-04-30] MEDS: LATANOPROST 0.005% OPHTH SOLN 2.5 ML OU SCH (21:41)
[2017-04-30] MEDS: PRAVASTATIN 10 MG TAB PO SCH (21:41)
[2017-04-30 22:00] VITALS: BP 134/61
[2017-05-01] MEDS ORDERED: NS 1,000 ML IV SCH (03:45)
[2017-05-01 06:00] VITALS: BP 149/96
[2017-05-01] MEDS: LEVOTHYROXINE 75MCG TABLET (0.075MG) PO SCH (06:06)
[2017-05-01 06:11] LABS: BASO # 0.1 10^3/uL (0.0-0.2); BASO % 0.7 % (0.0-1.0); EOS # 0.2 10^3/uL (0.0-0.50); EOS % 2.1 % (0.0-3.0); IMMATURE GRANULOCYTE % 0.1 % (0-0); LYMPH % 27.6 % (24.0-44.0); MEAN CORPUSCULAR HGB CONC 32.8 g/dl (32.0-36.5); MEAN CORPUSCULAR VOLUME 103.8 fl (80.0-96.0); MONO # 0.9 10^3/uL (0.0-0.8); MONO % 12.2 % (0.0-5.0); NEUTROPHILS # 4.1 10^3/uL (1.8-7.7); NEUTROPHILS % 57.3 % (36.0-66.0); PLATELET COUNT, AUTOMATED 276 10^3/uL (150-450); RED CELL DISTRIBUTION WIDTH 13.4 % (11.5-14.5); WHITE BLOOD COUNT 7.1 10^3/uL (4.0-10.0)
[2017-05-01 06:33] LABS: ALBUMIN/GLOBULIN RATIO 1.07 (1.00-1.93); ALKALINE PHOSPHATASE 118 U/L (45-117); ALT/SGPT 37 U/L (12-78); ANION GAP 7 MEQ/L (8-16); AST/SGOT 42 U/L (15-37); BILIRUBIN,TOTAL 0.4 MG/DL (0.2-1.0); BLOOD UREA NITROGEN 14 MG/DL (7-18); CALCIUM LEVEL 8.3 MG/DL (8.8-10.2); CARBON DIOXIDE LEVEL 29 MEQ/L (21-32); CHLORIDE LEVEL 107 MEQ/L (98-107); CREATININE FOR GFR 0.73 MG/DL (0.55-1.02); GLOMERULAR FILTRATION RATE > 60.0 (>32); GLUCOSE, FASTING 100 MG/DL (83-110); POTASSIUM SERUM 3.7 MEQ/L (3.5-5.1); SODIUM LEVEL 143 MEQ/L (136-145); TOTAL PROTEIN 5.8 GM/DL (6.4-8.2)
[2017-05-01] MEDS: CitaloPRAM (CeleXA) 10 MG TABLET PO SCH (08:10)
[2017-05-01] MEDS: MULTIVITAMINS/MINERALS THERAP 1 TAB PO SCH (08:10)
[2017-05-01] MEDS: ASPIRIN 81 MG ENTERIC TAB PO SCH (08:10)
[2017-05-01] MEDS: LISINOPRIL 5 MG TAB PO SCH (08:10)
[2017-05-01] MEDS ORDERED: INFLUENZA VIRUS VACCINE HIGH DOSE 0.5 ML SYRINGE (90662) IM ONE (09:00)
[2017-05-01] MEDS: TIMOLOL MALEATE 0.5% OPHTH SOLN 5 ML OU SCH (12:25)
[2017-05-01] MEDS: ACETAMINOPHEN TAB 650MG DOSE (2X325MG) PO PRN ×2 (13:43→20:23)
[2017-05-01 14:00] VITALS: BP 149/67
--- NOTE | 2017-05-01 15:24 | IPNPDOC ---
Subjective Date Seen The patient was seen on 05/01/17. Subjective Chief Complaint/HPI The patient is a 81-year-old female admitted with a reason for visit of Rhabdomyolysis. Events since last encounter Patient was having urinary retention overnight, was placed with a urinary catheter. There were some concerns about confusion overnight according to nursing staff. Patient was reported to choke on liquids, add swallowing evaluation today by speech therapy, her diet was changed to mechanically soft. Patient does not have any acute complaints today. She is continuing with physical therapy today. Her son does not appear to be open to placement in long- term care facility at this time. She believes that they have adequate resources for her to continue living at home. Constitutional: Denies: Chills, Fever, Night Sweats Pulmonary: Denies: Dyspnea, Cough Cardiovascular: Denies: Chest Pain, Palpitations, Orthopnea, Paroxysmal Noc. Dyspnea, Lt Headedness Gastrointestinal: Denies: Nausea, Vomiting, Abdominal Pain, Diarrhea, Constipation Genitourinary: Reports: Retention Objective Physical Examination General Exam: Positive: Alert, No Acute Distress Eye Exam: Negative: Sclera icteric ENT Exam: Positive: Atraumatic Neck Exam: Negative: Lymphadenopathy Chest Exam: Positive: Clear to auscultation, Normal air movement Heart Exam: Positive: Bradycardic, Regular Rhythm, Murmurs (3/6 holosystolic murmur with prominent S2 noted loudest at the LUSB with radiation to the carotids) Telemetry: Positive: Bradycardia Abdomen Exam: Positive: Normal bowel sounds, Soft, Negative: Tenderness Extremity Exam: Negative: Edema Neuro Exam: Positive: Other (slow, purposful, but leaden movements) Psych Exam: Positive: Memory Intact, Other (flat affect), Negative: Anxiety Assessment /Plan Problems (1) Rhabdomyolysis Status: Acute Response to Treatment: Improving Problem Text: 05/01/2017 - patient's CK continues to trend downwards, 418 today. We will continue to monitor. Patient had swallow eval, was changed to a mechanically soft diet. I will discontinue her IV hydration at this time. Item Value Date Time Total Creatine Kinase 1206 U/L H 04/29/17 1155 Total Creatine Kinase 703 U/L H 04/30/17 0551 Total Creatine Kinase 418 U/L H 05/01/17 0550 (2) Bradycardia Status: Chronic Response to Treatment: Stable Discussed With: Nurse, Patient Problem Specific Plan: Monitor Clinically Problem Text: 05/01/2017- patient continues to have bradycardia, asymptomatic. We will continue to monitor on telemetry. 04/30/2017- I suspect that this relates to her Parkinson's and she is asymptomatic. No pauses noted on tele. Will continue to monitor for now. (3) Urinary retention Status: Acute Problem Text: Patient had urinary retention last night. Guzman catheter was placed. We will continue to monitor at this time. (4) Parkinson's disease Status: Chronic Response to Treatment: Progressing Problem Text: 05/01/2017- It appears that the family is wanting for her to live at home. They state that they have adequate care for her. We will consider short-term rehabilitation versus long-term facility when patient is ready for discharge. At this time, patient will continue to work with PT. 04/30/2017 Most if not all of her acute problems are related to her chronic PD. Finding the right living situation for her after this acute admission will be a very important task for her ongoing health. (5) Hypertension Status: Chronic Response to Treatment: Stable Problem Text: Her BP is stable on her current regimen. Continue current medications, monitor. (6) Prerenal renal failure Status: Resolved Plan/VTE VTE Prophylaxis Ordered?: Yes (SCDs/TEDS) Plan/Urinary Catheter Reason for insertion/continuin: Acute obstruct/retention VS, I&O, 24H, Fishbone Vital Signs/I&O Vital Signs Date Time Temp Pulse Resp B/P (MAP) Pulse Ox O2 Delivery O2 Flow Rate FiO2 05/01/17 09:00 Room Air 05/01/17 06:00 97.2 67 17 149/96 (113) 97 Laboratory Data 24H LABS Laboratory Tests 2 05/01/17 05:50: Immature Granulocyte % (Auto) 0.1H, White Blood Count 7.1, Red Blood Count 3.38L , Hemoglobin 11.5L, Hematocrit 35.1L, Mean Corpuscular Volume 103.8H, Mean Corpuscular Hemoglobin 34.0H, Mean Corpuscular Hemoglobin Concent 32.8, Red Cell Distribution Width 13.4, Platelet Count 276, Neutrophils (%) (Auto) 57.3, Lymphocytes (%) (Auto) 27.6, Monocytes (%) (Auto) 12.2H, Eosinophils (%) (Auto) 2.1, Basophils (%) (Auto) 0.7, Neutrophils # (Auto) 4.1, Lymphocytes # (Auto) 2.0, Monocytes # (Auto) 0.9H, Eosinophils # (Auto) 0.2, Basophils # (Auto) 0.1, Immature Granulocyte # (Auto) 0.0, Nucleated Red Blood Cells % (auto) 0.0, Anion Gap 7L, Glomerular Filtration Rate > 60.0, Blood Urea Nitrogen 14, Creatinine 0.73, Sodium Level 143, Potassium Level 3.7, Chloride Level 107, Carbon Dioxide Level 29, Calcium Level 8.3L, Aspartate Amino Transf (AST/SGOT) 42H, Alanine Aminotransferase (ALT/SGPT) 37, Total Creatine Kinase 418H, Alkaline Phosphatase 118H, Total Bilirubin 0.4, Total Protein 5.8L, Albumin 3.0L , Albumin/Globulin Ratio 1.07 CBC/BMP Laboratory Tests 05/01/17 05:50 Red Blood Count 3.38 L, Mean Corpuscular Volume 103.8 H, Mean Corpuscular Hemoglobin 34.0 H, Mean Corpuscular Hemoglobin Concent 32.8, Red Cell Distribution Width 13.4, Neutrophils (%) (Auto) 57.3, Lymphocytes (%) (Auto) 27.6, Monocytes (%) (Auto) 12.2 H, Eosinophils (%) (Auto) 2.1, Basophils (%) ( Auto) 0.7, Neutrophils # (Auto) 4.1, Lymphocytes # (Auto) 2.0, Monocytes # (Auto ) 0.9 H, Eosinophils # (Auto) 0.2, Basophils # (Auto) 0.1, Calcium Level 8.3 L, Aspartate Amino Transf (AST/SGOT) 42 H, Alanine Aminotransferase (ALT/SGPT) 37, Total Creatine Kinase 418 H, Alkaline Phosphatase 118 H, Total Bilirubin 0.4, Total Protein 5.8 L, Albumin 3.0 L Microbiology Microbiology 04/29/17 Urine Culture - Final, Complete GME ATTESTATION GME ATTESTATION My preceptor for this patient encounter was physically present in the building during the encounter and was fully available. As needed, all aspects of the patient interview, examination, medical decision making process, and medical care plan development were reviewed and approved by the preceptor. Preceptor is aware and concurs with the plan as stated in the body of this note and will attest to such by his/her cosignature. ATTENDING NOTE Family Medicine Attending Note: I saw and examined Ms. Thomas with family at bedside this afternoon. I discussed her care with Dr. Cage and I agree with his note as documented. I agree with continuing guzman tonight, perhaps with a voiding trial tomorrow - she may ultimately need outpatient Urology follow-up for this. Urinary retention could be due to autonomic dysfunction with underlying Parkinson's disease. Family is willing to have her discharged to short-term rehab but they are resistant to long-term placement - will continue PT and plan for discharge based on their recommendations. (KES) DEZ CAGE DO May 01, 2017 11:57 DOUG TRUJILLO MD May 01, 2017 16:29
[2017-05-01] MEDS: PRAVASTATIN 10 MG TAB PO SCH (20:19)
[2017-05-01] MEDS: LATANOPROST 0.005% OPHTH SOLN 2.5 ML OU SCH (20:19)
--- NOTE | 2017-05-01 20:50 | ECGEPIP ---
Stationary ECG Study [facility] - ED Test Date: 2017-04-29 Pat Name: CLAU FERRO Department: Room: - Gender: F Buffer Chrome: : 1935 Requested By: Mao Daly Order Number: [id number] Reading MD: Jody Rae Measurements Intervals [place] Rate: 51 P: 25 WA: 144 QRS: -1 QRSD: 82 T: 43 QT: 438 QTc: 404 Interpretive Statements SINUS BRADYCARDIA WITH SINUS ARRHYTHMIA PROMINENT T WAVES - CLINICAL CORRELATION Electronically Signed On 05-01-2017 20:50:10 EDT by Jody Rae
[2017-05-01 22:00] VITALS: BP 106/53
[2017-05-02] MEDS: LEVOTHYROXINE 75MCG TABLET (0.075MG) PO SCH (05:37)
[2017-05-02 06:00] VITALS: BP 135/67
[2017-05-02 06:59] LABS: ALBUMIN 2.7 GM/DL (3.2-5.2); ALBUMIN/GLOBULIN RATIO 0.96 (1.00-1.93); ALKALINE PHOSPHATASE 112 U/L (45-117); ALT/SGPT 37 U/L (12-78); ANION GAP 7 MEQ/L (8-16); AST/SGOT 34 U/L (15-37); BILIRUBIN,TOTAL 0.4 MG/DL (0.2-1.0); BLOOD UREA NITROGEN 18 MG/DL (7-18); CALCIUM LEVEL 8.2 MG/DL (8.8-10.2); CARBON DIOXIDE LEVEL 28 MEQ/L (21-32); CHLORIDE LEVEL 107 MEQ/L (98-107); CREATININE FOR GFR 0.74 MG/DL (0.55-1.02); GLOMERULAR FILTRATION RATE > 60.0 (>32); GLUCOSE, FASTING 91 MG/DL (83-110); SODIUM LEVEL 142 MEQ/L (136-145); TOTAL PROTEIN 5.5 GM/DL (6.4-8.2)
--- NOTE | 2017-05-02 07:31 | IPNPDOC ---
Subjective Date Seen The patient was seen on 05/02/17. Subjective Chief Complaint/HPI The patient is a 81-year-old female admitted with a reason for visit of Rhabdomyolysis. Events since last encounter Patient denies c/o. states feeling better. Progressing with PT. Swallow eval completed per nursing note and recommending no straw and mechanical soft diet. Constitutional: Denies: Chills, Fever, Night Sweats Skin: Denies: Rash, Lesions, Breakdown Pulmonary: Denies: Dyspnea, Cough Cardiovascular: Denies: Chest Pain, Palpitations, Orthopnea, Paroxysmal Noc. Dyspnea, Lt Headedness Objective Physical Examination General Exam: Positive: Alert, No Acute Distress Eye Exam: Negative: Sclera icteric ENT Exam: Positive: Atraumatic Neck Exam: Negative: Lymphadenopathy Chest Exam: Positive: Clear to auscultation, Normal air movement Heart Exam: Positive: Bradycardic, Regular Rhythm, Murmurs (3/6 holosystolic murmur with prominent S2 noted loudest at the LUSB with radiation to the carotids) Telemetry: Positive: Bradycardia Abdomen Exam: Positive: Normal bowel sounds, Soft, Negative: Tenderness Extremity Exam: Negative: Edema Neuro Exam: Positive: Other (slow, purposful, but leaden movements) Psych Exam: Positive: Memory Intact, Other (flat affect), Negative: Anxiety Assessment /Plan Problems (1) Physical deconditioning Status: Acute Problem Text: 05/02/17 not safe per PT-recommend subacute rehab on dc (2) Rhabdomyolysis Status: Acute Response to Treatment: Improving Problem Text: 05/02/2017: CK continues to rend down. Patient states feeling better. strength slowly improving. 05/01/2017 - patient's CK continues to trend downwards, 418 today. We will continue to monitor. Patient had swallow eval, was changed to a mechanically soft diet. I will discontinue her IV hydration at this time. Item Value Date Time Total Creatine Kinase 1206 U/L H 04/29/17 1155 Total Creatine Kinase 703 U/L H 04/30/17 0551 Total Creatine Kinase 418 U/L H 05/01/17 0550 (3) Bradycardia Status: Chronic Response to Treatment: Stable Discussed With: Nurse, Patient Problem Specific Plan: Monitor Clinically Problem Text: 05/01/2017- patient continues to have bradycardia, asymptomatic. We will continue to monitor on telemetry. 04/30/2017- I suspect that this relates to her Parkinson's and she is asymptomatic. No pauses noted on tele. Will continue to monitor for now. (4) Urinary retention Status: Acute Problem Text: favor chronic urinary retention-? atonic bladder 2 PD 05/03/17 TOV in AM 04/29 UCX NG (5) Parkinson's disease Status: Chronic Response to Treatment: Progressing Problem Text: 05/01/2017- It appears that the family is wanting for her to live at home. They state that they have adequate care for her. We will consider short-term rehabilitation versus long-term facility when patient is ready for discharge. At this time, patient will continue to work with PT. 04/30/2017 Most if not all of her acute problems are related to her chronic PD. Finding the right living situation for her after this acute admission will be a very important task for her ongoing health. (6) Hypertension Status: Chronic Response to Treatment: Stable Problem Text: Her BP is stable on her current regimen. Continue current medications, monitor. Plan/VTE VTE Prophylaxis Ordered?: Yes (SCDs/TEDS) Plan/Urinary Catheter Reason for insertion/continuin: Acute obstruct/retention VS, I&O, 24H, Fishbone Vital Signs/I&O Vital Signs Date Time Temp Pulse Resp B/P (MAP) Pulse Ox O2 Delivery O2 Flow Rate FiO2 05/02/17 06:00 97.6 64 16 135/67 (89) 99 Room Air Laboratory Data 24H LABS Laboratory Tests 2 05/02/17 06:20: Anion Gap 7L, Glomerular Filtration Rate > 60.0, Blood Urea Nitrogen 18, Creatinine 0.74, Sodium Level 142, Potassium Level 4.0, Chloride Level 107, Carbon Dioxide Level 28, Calcium Level 8.2L, Aspartate Amino Transf (AST/SGOT) 34, Alanine Aminotransferase (ALT/SGPT) 37, Total Creatine Kinase 245H, Alkaline Phosphatase 112, Total Bilirubin 0.4, Total Protein 5.5L, Albumin 2.7L , Albumin/Globulin Ratio 0.96L CBC/BMP Laboratory Tests 05/02/17 06:20 Calcium Level 8.2 L, Aspartate Amino Transf (AST/SGOT) 34, Alanine Aminotransferase (ALT/SGPT) 37, Total Creatine Kinase 245 H, Alkaline Phosphatase 112, Total Bilirubin 0.4, Total Protein 5.5 L, Albumin 2.7 L Microbiology Microbiology 04/29/17 Urine Culture - Final, Complete Kiara Hathaway May 02, 2017 07:31 Dex Smith M.D. May 02, 2017 17:05
[2017-05-02] MEDS: LISINOPRIL 5 MG TAB PO SCH (09:37)
[2017-05-02] MEDS: MULTIVITAMINS/MINERALS THERAP 1 TAB PO SCH (09:38)
[2017-05-02] MEDS: ASPIRIN 81 MG ENTERIC TAB PO SCH (09:38)
[2017-05-02] MEDS: CitaloPRAM (CeleXA) 10 MG TABLET PO SCH (09:38)
[2017-05-02] MEDS: TIMOLOL MALEATE 0.5% OPHTH SOLN 5 ML OU SCH (10:33)
[2017-05-02 14:00] VITALS: BP 101/50
[2017-05-02] MEDS: PRAVASTATIN 10 MG TAB PO SCH (21:05)
[2017-05-02] MEDS: LATANOPROST 0.005% OPHTH SOLN 2.5 ML OU SCH (21:06)
[2017-05-02] MEDS: ACETAMINOPHEN TAB 650MG DOSE (2X325MG) PO PRN (21:10)
[2017-05-02 22:00] VITALS: BP 120/56
[2017-05-03] MEDS: ACETAMINOPHEN TAB 650MG DOSE (2X325MG) PO PRN (03:37)
[2017-05-03] MEDS: LEVOTHYROXINE 75MCG TABLET (0.075MG) PO SCH (05:57)
[2017-05-03 06:00] VITALS: BP 146/70
[2017-05-03 06:50] LABS: ALKALINE PHOSPHATASE 123 U/L (45-117); ALT/SGPT 44 U/L (12-78); ANION GAP 6 MEQ/L (8-16); AST/SGOT 40 U/L (15-37); BILIRUBIN,TOTAL 0.5 MG/DL (0.2-1.0); BLOOD UREA NITROGEN 26 MG/DL (7-18); CALCIUM LEVEL 8.2 MG/DL (8.8-10.2); CARBON DIOXIDE LEVEL 30 MEQ/L (21-32); CHLORIDE LEVEL 105 MEQ/L (98-107); CREATININE FOR GFR 0.75 MG/DL (0.55-1.02); GLOMERULAR FILTRATION RATE > 60.0 (>32); GLUCOSE, FASTING 98 MG/DL (83-110); POTASSIUM SERUM 3.7 MEQ/L (3.5-5.1); SODIUM LEVEL 141 MEQ/L (136-145)
[2017-05-03 06:51] LABS: ALBUMIN 2.9 GM/DL (3.2-5.2); ALBUMIN/GLOBULIN RATIO 0.91 (1.00-1.93); TOTAL PROTEIN 6.1 GM/DL (6.4-8.2)
--- NOTE | 2017-05-03 08:09 | IPNPDOC ---
Subjective Date Seen The patient was seen on 05/03/17. Subjective Chief Complaint/HPI The patient is a 81-year-old female admitted with a reason for visit of Rhabdomyolysis. Events since last encounter Continues to slowly improve. denies c/o today Constitutional: Denies: Chills, Fever, Night Sweats Pulmonary: Denies: Dyspnea, Cough Cardiovascular: Denies: Chest Pain, Palpitations, Orthopnea, Paroxysmal Noc. Dyspnea, Lt Headedness Gastrointestinal: Denies: Nausea, Vomiting, Abdominal Pain, Diarrhea, Constipation Genitourinary: Reports: Other Symptoms ([place] ) Objective Physical Examination General Exam: Positive: Alert, No Acute Distress Eye Exam: Negative: Sclera icteric ENT Exam: Positive: Atraumatic Neck Exam: Negative: Lymphadenopathy Chest Exam: Positive: Clear to auscultation, Normal air movement Heart Exam: Positive: Bradycardic, Regular Rhythm, Murmurs (3/6 holosystolic murmur with prominent S2 noted loudest at the LUSB with radiation to the carotids) Telemetry: Positive: Bradycardia Abdomen Exam: Positive: Normal bowel sounds, Soft, Negative: Tenderness Extremity Exam: Negative: Edema Neuro Exam: Positive: Other (slow, purposful, but leaden movements) Psych Exam: Positive: Memory Intact, Other (flat affect), Negative: Anxiety Assessment /Plan Problems (1) Physical deconditioning Status: Acute Problem Text: 05/03/17: PFS involved in DC planning process. 05/02/17 not safe per PT-recommend subacute rehab on dc (2) Rhabdomyolysis Status: Acute Response to Treatment: Improving Problem Text: 05/02/2017: CK continues to rend down. Patient states feeling better. strength slowly improving. 05/01/2017 - patient's CK continues to trend downwards, 418 today. We will continue to monitor. Patient had swallow eval, was changed to a mechanically soft diet. I will discontinue her IV hydration at this time. Item Value Date Time Total Creatine Kinase 1206 U/L H 04/29/17 1155 Total Creatine Kinase 703 U/L H 04/30/17 0551 Total Creatine Kinase 418 U/L H 05/01/17 0550 (3) Urinary retention Status: Acute Problem Text: 05/03/17: DC [place]ie[place] today. Check PVR. CT of spine done on admission (04/29/17) showed "mild spinal stenosis from facet hypertrophy and broad-based posterior disc bulging at L3-4 and L4-5." Follow-up MRI was recommended. Given her ongoing urinary retention, MRI ordered for today. Urinary retention could also be due to possible atonic bladder due to PD. (KES) 04/29 UCX NG (4) Parkinson's disease Status: Chronic Response to Treatment: Progressing Problem Text: 05/01/2017- It appears that the family is wanting for her to live at home. They state that they have adequate care for her. We will consider short-term rehabilitation versus long-term facility when patient is ready for discharge. At this time, patient will continue to work with PT. 04/30/2017 Most if not all of her acute problems are related to her chronic PD. Finding the right living situation for her after this acute admission will be a very important task for her ongoing health. (5) Bradycardia Status: Chronic Response to Treatment: Stable Discussed With: Nurse, Patient Problem Specific Plan: Monitor Clinically Problem Text: 05/01/2017- patient continues to have bradycardia, asymptomatic. We will continue to monitor on telemetry. 04/30/2017- I suspect that this relates to her Parkinson's and she is asymptomatic. No pauses noted on tele. Will continue to monitor for now. (6) Hypertension Status: Chronic Response to Treatment: Stable Problem Text: Her BP is stable on her current regimen. Continue current medications, monitor. Plan/VTE VTE Prophylaxis Ordered?: Yes (SCDs/TEDS) Plan/Urinary Catheter Reason for insertion/continuin: Acute obstruct/retention Plan Family Medicine Attending Note: Patient was seen and examined this afternoon. I discussed her care with GEO Dominguez and I agree with her note as documented above with noted additions. (KES) VS, I&O, 24H, Fishbone Vital Signs/I&O Vital Signs Date Time Temp Pulse Resp B/P (MAP) Pulse Ox O2 Delivery O2 Flow Rate FiO2 05/03/17 06:00 97.8 57 17 146/70 (95) 96 Room Air Laboratory Data 24H LABS Laboratory Tests 2 05/03/17 06:11: Anion Gap 6L, Glomerular Filtration Rate > 60.0, Blood Urea Nitrogen 26H, Creatinine 0.75, Sodium Level 141, Potassium Level 3.7, Chloride Level 105, Carbon Dioxide Level 30, Calcium Level 8.2L, Aspartate Amino Transf (AST/SGOT) 40H, Alanine Aminotransferase (ALT/SGPT) 44, Total Creatine Kinase 215H, Alkaline Phosphatase 123H, Total Bilirubin 0.5, Total Protein 6.1L, Albumin 2.9L , Albumin/Globulin Ratio 0.91L CBC/BMP Laboratory Tests 05/03/17 06:11 Calcium Level 8.2 L, Aspartate Amino Transf (AST/SGOT) 40 H, Alanine Aminotransferase (ALT/SGPT) 44, Total Creatine Kinase 215 H, Alkaline Phosphatase 123 H, Total Bilirubin 0.5, Total Protein 6.1 L, Albumin 2.9 L Microbiology Microbiology 04/29/17 Urine Culture - Final, Complete Kiara Hathaway May 03, 2017 08:09 DOUG TRUJILLO MD May 03, 2017 14:10
[2017-05-03] MEDS: CitaloPRAM (CeleXA) 10 MG TABLET PO SCH (10:15)
[2017-05-03] MEDS: LISINOPRIL 5 MG TAB PO SCH (10:15)
[2017-05-03] MEDS: MULTIVITAMINS/MINERALS THERAP 1 TAB PO SCH (10:16)
[2017-05-03] MEDS: TIMOLOL MALEATE 0.5% OPHTH SOLN 5 ML OU SCH (10:16)
[2017-05-03] MEDS: ASPIRIN 81 MG ENTERIC TAB PO SCH (10:16)
[2017-05-03 14:00] VITALS: BP 106/59
--- NOTE | 2017-05-03 16:21 | REP ---
MRI lumbar spine without contrast: History: Spinal stenosis on CT scan. CT April 29, 2017. History of urinary retention. Technique: Sagittal and axial T1 and T2-weighted scans are acquired in the usual fashion with and without fat saturation. Sequences include spin echo, turbo spin-echo, and STIR imaging sequences. MRI findings: Lumbar vertebral body heights are preserved. Cortical and medullary bone signal intensity are normal. There is degenerative disc disease diffusely in the lumbar spine with narrowing and decreased disc space signal intensity. Lumbar lordosis is somewhat exaggerated. There is a mild retrolisthesis at L2-3 and the degenerative disc spaces measuring 4 mm. There is also a 3 mm retrolisthesis at L1-2. Conus medullaris is normal in position and appearance at L1-L2. Axial and sagittal images at L1-2 show mild diffuse disc bulging indenting the ventral margin of the thecal sac. No central canal stenosis is seen. No neural foraminal encroachment is seen. L2-3, there is mild to moderate diffuse disc bulging effacing the ventral margin of the thecal sac. Canal size is borderline. No neural foraminal encroachment is seen. At L3-4, there is mild diffuse disc bulging. Mild ligamentum flavum hypertrophy is seen. Canal size is borderline. Mid sagittal AP dimension of the thecal sac is normal 12 mm. The nerve roots exit the spinal canal without compression. At L4-5, there is diffuse disc bulging. There is new moderate ligamentum flavum and mild facet hypertrophy. The canal has a somewhat triangular shape and is borderline in size. AP dimension is normal at 12 mm. No neural foraminal encroachment. At L5-S1, there is mild diffuse disc bulging and mild facet hypertrophy. No other finding. Impression: Borderline canal size at L2-3 and L3-4 and L4-5. No significant central canal stenosis is seen. Diffusely bulging discs at each level. Degenerative minimal retrolisthesis L2-3 and L1-2. Some facet and ligamentum flavum hypertrophy seen. Signed by Elroy Lei MD 05/03/2017 04:41 P
[2017-05-03] MEDS: PRAVASTATIN 10 MG TAB PO SCH (21:10)
[2017-05-03] MEDS: LATANOPROST 0.005% OPHTH SOLN 2.5 ML OU SCH (21:11)
[2017-05-03 22:00] VITALS: BP 127/70
[2017-05-04] MEDS: LEVOTHYROXINE 75MCG TABLET (0.075MG) PO SCH (05:30)
[2017-05-04 06:00] VITALS: BP 127/62
[2017-05-04 06:19] LABS: BASO # 0.1 10^3/uL (0.0-0.2); BASO % 0.6 % (0.0-1.0); EOS # 0.2 10^3/uL (0.0-0.50); EOS % 2.7 % (0.0-3.0); IMMATURE GRANULOCYTE % 0.1 % (0-0); LYMPH # 2.1 10^3/uL (1.5-4.5); MEAN CORPUSCULAR HEMOGLOBIN 33.5 pg (27.0-33.0); MEAN CORPUSCULAR HGB CONC 32.2 g/dl (32.0-36.5); MEAN CORPUSCULAR VOLUME 104.1 fl (80.0-96.0); MONO # 0.9 10^3/uL (0.0-0.8); MONO % 11.5 % (0.0-5.0); NEUTROPHILS # 4.7 10^3/uL (1.8-7.7); NEUTROPHILS % 59.1 % (36.0-66.0); PLATELET COUNT, AUTOMATED 274 10^3/uL (150-450); RED CELL DISTRIBUTION WIDTH 13.6 % (11.5-14.5); WHITE BLOOD COUNT 7.9 10^3/uL (4.0-10.0)
[2017-05-04 06:37] LABS: ALKALINE PHOSPHATASE 118 U/L (45-117); ALT/SGPT 45 U/L (12-78); ANION GAP 7 MEQ/L (8-16); AST/SGOT 40 U/L (15-37); BILIRUBIN,TOTAL 0.4 MG/DL (0.2-1.0); BLOOD UREA NITROGEN 21 MG/DL (7-18); CALCIUM LEVEL 8.5 MG/DL (8.8-10.2); CARBON DIOXIDE LEVEL 29 MEQ/L (21-32); CHLORIDE LEVEL 106 MEQ/L (98-107); CREATININE FOR GFR 0.73 MG/DL (0.55-1.02); GLOMERULAR FILTRATION RATE > 60.0 (>32); GLUCOSE, FASTING 95 MG/DL (83-110); POTASSIUM SERUM 3.8 MEQ/L (3.5-5.1); SODIUM LEVEL 142 MEQ/L (136-145)
[2017-05-04] MEDS: CitaloPRAM (CeleXA) 10 MG TABLET PO SCH (08:56)
[2017-05-04] MEDS: MULTIVITAMINS/MINERALS THERAP 1 TAB PO SCH (08:57)
[2017-05-04] MEDS: TIMOLOL MALEATE 0.5% OPHTH SOLN 5 ML OU SCH (08:57)
[2017-05-04] MEDS: LISINOPRIL 5 MG TAB PO SCH (08:57)
[2017-05-04] MEDS: ASPIRIN 81 MG ENTERIC TAB PO SCH (08:57)
[2017-05-04 14:00] VITALS: BP 95/54
[2017-05-04 18:16] VITALS: BP 101/53
--- NOTE | 2017-05-04 18:29 | IPNPDOC ---
Subjective Date Seen The patient was seen on 05/04/17. Subjective Chief Complaint/HPI The patient is a 81-year-old female admitted with a reason for visit of Rhabdomyolysis. Events since last encounter Patient was sitting upright by bedside today. She was accompanied by her son Braxton. Patient had urinary retention overnight. They straight cath her on the floor and was started on a Noriega catheter this morning. Patient denies pain with the cath in place. Otherwise, patient had no complaints. She continues to eat well. Patient is not cleared for discharge by physical therapy, she ambulated about 160 ft today. Constitutional: Denies: Chills, Fever, Night Sweats Pulmonary: Denies: Dyspnea, Cough Cardiovascular: Denies: Chest Pain, Palpitations, Orthopnea, Paroxysmal Noc. Dyspnea, Lt Headedness Genitourinary: Reports: Retention Musculoskeletal: Reports: Other Symptoms (poor gait, patient easily fatigues.) Objective Physical Examination General Exam: Positive: Alert, No Acute Distress Eye Exam: Negative: Sclera icteric ENT Exam: Positive: Atraumatic Neck Exam: Negative: Lymphadenopathy Chest Exam: Positive: Clear to auscultation, Normal air movement Heart Exam: Positive: Bradycardic, Regular Rhythm, Murmurs (3/6 holosystolic murmur with prominent S2 noted loudest at the LUSB with radiation to the carotids) Telemetry: Positive: Bradycardia Abdomen Exam: Positive: Normal bowel sounds, Soft, Negative: Tenderness Extremity Exam: Negative: Edema Neuro Exam: Positive: Other (slow, purposful, but leaden movements) Psych Exam: Positive: Memory Intact, Other (flat affect), Negative: Anxiety Assessment /Plan Problems (1) Physical deconditioning Status: Acute Problem Text: 05/04/17: Patient continues to work with PT, she is currently not safe for d/c. Was able to ambulated for 160ft. She was noted to tire easily. Patient status was changed to SNF today. 05/03/17: PFS involved in DC planning process. 05/02/17 not safe per PT-recommend subacute rehab on dc (2) Rhabdomyolysis Status: Acute Response to Treatment: Improving Problem Text: 05/04/17: CK at 197 today, continues to trend down. Patient is tolerating liquids, is off of IVF. Has a urinary catheter for urinary retention. Urine seemed clear light yellow today. 05/02/2017: CK continues to rend down. Patient states feeling better. strength slowly improving. 05/01/2017 - patient's CK continues to trend downwards, 418 today. We will continue to monitor. Patient had swallow eval, was changed to a mechanically soft diet. I will discontinue her IV hydration at this time. Item Value Date Time Total Creatine Kinase 1206 U/L H 04/29/17 1155 Total Creatine Kinase 703 U/L H 04/30/17 0551 Total Creatine Kinase 418 U/L H 05/01/17 0550 (3) Urinary retention Status: Acute Problem Text: 05/04/17 Patient had acute urinary retention in the strategic insights lead. She was straight cath at the time. She was then restarted on a urinary catheter. 05/03/17: LORI Noriega today. Check PVR. CT of spine done on admission (04/29/17) showed "mild spinal stenosis from facet hypertrophy and broad-based posterior disc bulging at L3-4 and L4-5." Follow-up MRI was recommended. Given her ongoing urinary retention, MRI ordered for today. Urinary retention could also be due to possible atonic bladder due to PD. (KES) 04/29 UCX NG (4) Parkinson's disease Status: Chronic Response to Treatment: Progressing Problem Text: 05/01/2017- It appears that the family is wanting for her to live at home. They state that they have adequate care for her. We will consider short-term rehabilitation versus long-term facility when patient is ready for discharge. At this time, patient will continue to work with PT. 04/30/2017 Most if not all of her acute problems are related to her chronic PD. Finding the right living situation for her after this acute admission will be a very important task for her ongoing health. (5) Bradycardia Status: Chronic Response to Treatment: Stable Discussed With: Nurse, Patient Problem Specific Plan: Monitor Clinically Problem Text: 05/01/2017- patient continues to have bradycardia, asymptomatic. We will continue to monitor on telemetry. 04/30/2017- I suspect that this relates to her Parkinson's and she is asymptomatic. No pauses noted on tele. Will continue to monitor for now. (6) Hypertension Status: Chronic Response to Treatment: Stable Problem Text: Her BP is stable on her current regimen. Continue current medications, monitor. Plan/VTE VTE Prophylaxis Ordered?: Yes (SCDs/TEDS) Plan/Urinary Catheter Reason for insertion/continuin: Acute obstruct/retention Plan Family medicine attending note: I saw and examined Ms. Thomas on 05/04/17 and I discussed her care with Dr. Cage - Cara salazar with his note as documented. At this time, patient is stable for discharge to a nursing facility for rehab, likely on Monday. (KES) VS, I&O, 24H, Fishbone Vital Signs/I&O Vital Signs Date Time Temp Pulse Resp B/P (MAP) Pulse Ox O2 Delivery O2 Flow Rate FiO2 05/04/17 14:00 97.3 56 18 95/54 (68) 96 Room Air I&O- Last 24 Hours up to 6 AM 05/05/17 06:00 Intake Total 480 ml Output Total 200 ml Balance 280 ml Laboratory Data 24H LABS Laboratory Tests 2 05/04/17 06:00: Immature Granulocyte % (Auto) 0.1H, White Blood Count 7.9, Red Blood Count 3.43L , Hemoglobin 11.5L, Hematocrit 35.7L, Mean Corpuscular Volume 104.1H, Mean Corpuscular Hemoglobin 33.5H, Mean Corpuscular Hemoglobin Concent 32.2, Red Cell Distribution Width 13.6, Platelet Count 274, Neutrophils (%) (Auto) 59.1, Lymphocytes (%) (Auto) 26.0, Monocytes (%) (Auto) 11.5H, Eosinophils (%) (Auto) 2.7, Basophils (%) (Auto) 0.6, Neutrophils # (Auto) 4.7, Lymphocytes # (Auto) 2.1, Monocytes # (Auto) 0.9H, Eosinophils # (Auto) 0.2, Basophils # (Auto) 0.1, Immature Granulocyte # (Auto) 0.0, Nucleated Red Blood Cells % (auto) 0.0, Anion Gap 7L, Glomerular Filtration Rate > 60.0, Blood Urea Nitrogen 21H, Creatinine 0.73, Sodium Level 142, Potassium Level 3.8, Chloride Level 106, Carbon Dioxide Level 29, Calcium Level 8.5L, Aspartate Amino Transf (AST/SGOT) 40H, Alanine Aminotransferase (ALT/SGPT) 45, Total Creatine Kinase 197H, Alkaline Phosphatase 118H, Total Bilirubin 0.4, Total Protein 6.0L, Albumin 3.0L , Albumin/Globulin Ratio 1.00 CBC/BMP Laboratory Tests 05/04/17 06:00 Red Blood Count 3.43 L, Mean Corpuscular Volume 104.1 H, Mean Corpuscular Hemoglobin 33.5 H, Mean Corpuscular Hemoglobin Concent 32.2, Red Cell Distribution Width 13.6, Neutrophils (%) (Auto) 59.1, Lymphocytes (%) (Auto) 26.0, Monocytes (%) (Auto) 11.5 H, Eosinophils (%) (Auto) 2.7, Basophils (%) ( Auto) 0.6, Neutrophils # (Auto) 4.7, Lymphocytes # (Auto) 2.1, Monocytes # (Auto ) 0.9 H, Eosinophils # (Auto) 0.2, Basophils # (Auto) 0.1, Calcium Level 8.5 L, Aspartate Amino Transf (AST/SGOT) 40 H, Alanine Aminotransferase (ALT/SGPT) 45, Total Creatine Kinase 197 H, Alkaline Phosphatase 118 H, Total Bilirubin 0.4, Total Protein 6.0 L, Albumin 3.0 L Microbiology Microbiology 04/29/17 Urine Culture - Final, Complete DEZ CAGE DO May 04, 2017 18:29 DOUG TRUJILLO MD May 05, 2017 12:36
[2017-05-04] MEDS: PRAVASTATIN 10 MG TAB PO SCH (20:45)
[2017-05-04] MEDS: LATANOPROST 0.005% OPHTH SOLN 2.5 ML OU SCH (20:45)
[2017-05-04] MEDS: ACETAMINOPHEN TAB 650MG DOSE (2X325MG) PO PRN (20:52)
[2017-05-05] MEDS: LEVOTHYROXINE 75MCG TABLET (0.075MG) PO SCH (05:44)
[2017-05-05 06:00] VITALS: BP 130/61
[2017-05-05 07:03] LABS: ALBUMIN/GLOBULIN RATIO 0.94 (1.00-1.93); ALKALINE PHOSPHATASE 124 U/L (45-117); ALT/SGPT 53 U/L (12-78); ANION GAP 7 MEQ/L (8-16); AST/SGOT 47 U/L (15-37); BILIRUBIN,TOTAL 0.4 MG/DL (0.2-1.0); BLOOD UREA NITROGEN 28 MG/DL (7-18); CALCIUM LEVEL 8.6 MG/DL (8.8-10.2); CARBON DIOXIDE LEVEL 28 MEQ/L (21-32); CHLORIDE LEVEL 105 MEQ/L (98-107); CREATININE FOR GFR 0.79 MG/DL (0.55-1.02); GLOMERULAR FILTRATION RATE > 60.0 (>32); GLUCOSE, FASTING 90 MG/DL (83-110); SODIUM LEVEL 140 MEQ/L (136-145); TOTAL PROTEIN 6.2 GM/DL (6.4-8.2)
[2017-05-05] MEDS: TIMOLOL MALEATE 0.5% OPHTH SOLN 5 ML OU SCH (08:38)
[2017-05-05] MEDS: ASPIRIN 81 MG ENTERIC TAB PO SCH (08:38)
[2017-05-05] MEDS: MULTIVITAMINS/MINERALS THERAP 1 TAB PO SCH (08:38)
[2017-05-05] MEDS: LISINOPRIL 5 MG TAB PO SCH (08:38)
[2017-05-05] MEDS: CitaloPRAM (CeleXA) 10 MG TABLET PO SCH (08:38)
[2017-05-05] MEDS: PRAVASTATIN 10 MG TAB PO SCH (21:45)
[2017-05-05 22:00] VITALS: BP 100/50
[2017-05-05] MEDS: LATANOPROST 0.005% OPHTH SOLN 2.5 ML OU SCH (22:33)
[2017-05-06 06:00] VITALS: BP 124/59
[2017-05-06 06:15] LABS: ALBUMIN 2.9 GM/DL (3.2-5.2); ALBUMIN/GLOBULIN RATIO 0.97 (1.00-1.93); ALKALINE PHOSPHATASE 129 U/L (45-117); ALT/SGPT 54 U/L (12-78); ANION GAP 8 MEQ/L (8-16); AST/SGOT 43 U/L (7-37); BILIRUBIN,TOTAL 0.3 MG/DL (0.2-1.0); BLOOD UREA NITROGEN 34 MG/DL (7-18); CALCIUM LEVEL 8.4 MG/DL (8.8-10.2); CARBON DIOXIDE LEVEL 29 MEQ/L (21-32); CHLORIDE LEVEL 105 MEQ/L (98-107); CREATININE FOR GFR 0.88 MG/DL (0.55-1.02); GLOMERULAR FILTRATION RATE > 60.0 (>32); GLUCOSE, FASTING 100 MG/DL (83-110); POTASSIUM SERUM 4.1 MEQ/L (3.5-5.1); SODIUM LEVEL 142 MEQ/L (136-145); TOTAL PROTEIN 5.9 GM/DL (6.4-8.2)
[2017-05-06] MEDS: LEVOTHYROXINE 75MCG TABLET (0.075MG) PO SCH (06:21)
[2017-05-06] MEDS: TIMOLOL MALEATE 0.5% OPHTH SOLN 5 ML OU SCH (09:00)
[2017-05-06] MEDS: CitaloPRAM (CeleXA) 10 MG TABLET PO SCH (09:28)
[2017-05-06] MEDS: LISINOPRIL 5 MG TAB PO SCH (09:28)
[2017-05-06] MEDS: ASPIRIN 81 MG ENTERIC TAB PO SCH (09:28)
[2017-05-06] MEDS: MULTIVITAMINS/MINERALS THERAP 1 TAB PO SCH (09:28)
[2017-05-06] MEDS: LATANOPROST 0.005% OPHTH SOLN 2.5 ML OU SCH (20:07)
[2017-05-06] MEDS: PRAVASTATIN 10 MG TAB PO SCH (20:08)
[2017-05-07] MEDS: LEVOTHYROXINE 75MCG TABLET (0.075MG) PO SCH (05:24)
[2017-05-07 06:00] VITALS: BP 152/66
[2017-05-07] MEDS: ACETAMINOPHEN TAB 650MG DOSE (2X325MG) PO PRN (07:51)
[2017-05-07] MEDS: LISINOPRIL 5 MG TAB PO SCH (08:49)
[2017-05-07] MEDS: CitaloPRAM (CeleXA) 10 MG TABLET PO SCH (08:49)
[2017-05-07] MEDS: MULTIVITAMINS/MINERALS THERAP 1 TAB PO SCH (08:49)
[2017-05-07] MEDS: ASPIRIN 81 MG ENTERIC TAB PO SCH (08:50)
[2017-05-07] MEDS: TIMOLOL MALEATE 0.5% OPHTH SOLN 5 ML OU SCH (08:54)
[2017-05-07] MEDS: PRAVASTATIN 10 MG TAB PO SCH (20:06)
[2017-05-07] MEDS: LATANOPROST 0.005% OPHTH SOLN 2.5 ML OU SCH (20:07)
[2017-05-08] MEDS: LEVOTHYROXINE 75MCG TABLET (0.075MG) PO SCH (05:36)
[2017-05-08] MEDS: ASPIRIN 81 MG ENTERIC TAB PO SCH (09:11)
[2017-05-08] MEDS: MULTIVITAMINS/MINERALS THERAP 1 TAB PO SCH (09:11)
[2017-05-08] MEDS: CitaloPRAM (CeleXA) 10 MG TABLET PO SCH (09:12)
[2017-05-08] MEDS: TIMOLOL MALEATE 0.5% OPHTH SOLN 5 ML OU SCH (09:13)
[2017-05-08] MEDS: LISINOPRIL 5 MG TAB PO SCH (09:14)
[2017-05-08] MEDS ORDERED: Acetaminophen Tab PO (10:43)
[2017-05-08] MEDS: PRAVASTATIN 10 MG TAB PO SCH (21:22)
[2017-05-08] MEDS: LATANOPROST 0.005% OPHTH SOLN 2.5 ML OU SCH (21:22)
[2017-05-09] MEDS: LEVOTHYROXINE 75MCG TABLET (0.075MG) PO SCH (05:47)
[2017-05-09 06:00] VITALS: BP 106/53
[2017-05-09 09:00] VITALS: BP 108/62
[2017-05-09] MEDS: LISINOPRIL 5 MG TAB PO SCH (09:00)
[2017-05-09] MEDS: MULTIVITAMINS/MINERALS THERAP 1 TAB PO SCH (10:04)
[2017-05-09] MEDS: TIMOLOL MALEATE 0.5% OPHTH SOLN 5 ML OU SCH (10:04)
[2017-05-09] MEDS: ASPIRIN 81 MG ENTERIC TAB PO SCH (10:04)
[2017-05-09] MEDS: CitaloPRAM (CeleXA) 10 MG TABLET PO SCH (10:04)
--- NOTE | 2017-05-09 15:50 | DSES ---
DATE OF ADMISSION: 04/29/2017 DATE OF DISCHARGE: 05/09/2017 PRIMARY CARE PHYSICIAN: Dr. Josué Mayer HISTORY: This is an 81-year-old female who presented to [facility] Emergency Room accompanied by her son and niece complaining of falls and new-onset lower extremity weakness. She has had multiple falls and progressive weakness over the last few months. Her passed in March of 2017, and her physical condition has declined since then. During her hospitalization, she has remained medically stable. She was noted to have an elevated creatine phosphokinase (CPK) with rhabdomyolysis. She tolerated initially intravenous (IV) fluids and then these were discontinued as per CPK trended down. She did have some urinary retention requiring straight catheterization, although this seems to have resolved as well. She has been seen by physical therapy during her hospitalization, who feels that the patient is penitentiary appropriate. Her discharge diagnoses includes physical deconditioning with multiple falls, rhabdomyolysis, urinary retention, Parkinson's disease, bradycardia, hypertension. DISCHARGE MEDICATIONS: - acetaminophen 650 mg every 6 hours as needed for pain - aspirin 81 mg daily - citalopram 10 mg daily - latanoprost 50 one drop each eye before bed - levothyroxine 75 mcg daily - lisinopril 5 mg daily - multivitamin one tablet daily - pravastatin 10 mg by mouth before bed - timolol 0.5% one drop each eye daily DISCHARGE PLAN: Followup with Dr. Wild at [facility]. Activity should be as tolerated. Her diet is mechanical soft. She received her high-dose influenza vaccine on May 01.
== END 2017-05-09 10:34 | DRG 558 ==
LOC: M ED 10:43 → M ED INP 16:50 → M MSPAV 19:41
PROVIDERS: ADMIT Family Medicine; ATTEND Family Medicine
DX: M62.82 Rhabdomyolysis (principal); F32.2 Major depressive disorder, single episode, severe without psychotic features; R73.01 Impaired fasting glucose; E03.9 Hypothyroidism, unspecified; E55.9 Vitamin D deficiency, unspecified; I10 Essential (primary) hypertension; I25.10 Atherosclerotic heart disease of native coronary artery without angina pectoris; R00.1 Bradycardia, unspecified; I25.2 Old myocardial infarction; E78.5 Hyperlipidemia, unspecified; N39.41 Urge incontinence; R29.6 Repeated falls; R33.9 Retention of urine, unspecified; G20 Parkinson's disease; D53.9 Nutritional anemia, unspecified; Z87.891 Personal history of nicotine dependence; Z79.82 Long term (current) use of aspirin; Z79.899 Other long term (current) drug therapy; Z88.0 Allergy status to penicillin; Z88.8 Allergy status to other drugs, medicaments and biological substances

== ENCOUNTER → 2017-06-27 | Outpatient (REF) | payer MEDICARE ==
[~2017-06-27] MED LIST changes: +Acetaminophen Tab PO; +CITA10TA5; +CITA10TA5 PO; +LISI-542 PO; +PRAV10TA4 PO; +TIMO0.5S29 OU; +VITMTA PO
== END ==
LOC: M SMT 14:10
PROVIDERS: ATTEND Nurse Practitioner Women's Health
DX: R32 Unspecified urinary incontinence (principal)

== ENCOUNTER → 2017-07-14 | Outpatient (REF) | payer MEDICARE ==
[2017-07-14 18:14] LABS: APPEARANCE, URINE CLEAR (CLEAR); BACTERIA, URINE AUTO NEGATIVE (NEGATIVE); BILIRUBIN, URINE AUTO NEGATIVE (NEGATIVE); BLOOD, URINE BLOOD NEGATIVE (NEGATIVE); COLOR, URINE YELLOW (YELLOW); GLUCOSE, URINE (UA) AUTO NEGATIVE (NEGATIVE); KETONE, URINE AUTO NEGATIVE (NEGATIVE); LEUKOCYTE ESTERASE, URINE AUTO NEGATIVE (NEGATIVE); MUCUS, URINE SMALL (NEGATIVE); NITRITE, URINE AUTO NEGATIVE (NEGATIVE); PROTEIN, URINE AUTO NEGATIVE (NEGATIVE); RBC, URINE AUTO 0 /HPF (0-3); SQUAMOUS EPITHELIAL CELL UR AU 1 /HPF (0-6); UROBILINOGEN, URINE AUTO 0.2 mg/dL (0.0-2.0); WBC, URINE AUTO 1 /HPF (0-3)
== END ==
LOC: M SFHCPLAZ 16:51
DX: R32 Unspecified urinary incontinence (principal)
CPT/HCPCS: 81001

== ENCOUNTER → 2017-08-08 | Outpatient (REF) | payer MEDICARE | LOC: M SFHCADAM 08:51 | DX: R32 Unspecified urinary incontinence (principal) | CPT/HCPCS: 87086 ==

== ENCOUNTER → 2017-08-11 | Outpatient (REF) | payer MEDICARE ==
[2017-08-11 16:14] LABS: HEMATOCRIT 36.9 % (36.0-47.0); HEMOGLOBIN 11.5 g/dl (12.0-16.0); MEAN CORPUSCULAR HEMOGLOBIN 33.3 pg (27.0-33.0); MEAN CORPUSCULAR HGB CONC 31.2 g/dl (32.0-36.5); PLATELET COUNT, AUTOMATED 245 10^3/uL (150-450); RED BLOOD COUNT 3.45 10^6/uL (4.00-5.40); RED CELL DISTRIBUTION WIDTH 12.9 % (11.5-14.5); WHITE BLOOD COUNT 7.4 10^3/uL (4.0-10.0)
[2017-08-11 16:40] LABS: ALBUMIN 3.9 GM/DL (3.2-5.2); ALBUMIN/GLOBULIN RATIO 1.26 (1.00-1.93); ALKALINE PHOSPHATASE 102 U/L (45-117); ALT/SGPT 43 U/L (12-78); ANION GAP 6 MEQ/L (8-16); AST/SGOT 33 U/L (7-37); BILIRUBIN,TOTAL 0.3 MG/DL (0.2-1.0); BLOOD UREA NITROGEN 21 MG/DL (7-18); CALCIUM LEVEL 8.8 MG/DL (8.8-10.2); CARBON DIOXIDE LEVEL 31 MEQ/L (21-32); CHLORIDE LEVEL 105 MEQ/L (98-107); CREATININE FOR GFR 1.06 MG/DL (0.55-1.30); FREE T4 0.95 NG/DL (0.76-1.46); GLOMERULAR FILTRATION RATE 53.1 (>32); GLUCOSE, FASTING 81 MG/DL (70-100); POTASSIUM SERUM 4.2 MEQ/L (3.5-5.1); SODIUM LEVEL 142 MEQ/L (136-145)
[2017-08-11 16:41] LABS: VITAMIN B12 LEVEL 559 PG/ML (247-911)
[2017-08-11 16:42] LABS: FOLATE > 24.0 NG/ML (>5.4)
== END ==
LOC: M SFHCPLAZ 12:56
DX: G20 Parkinson's disease (principal); R29.6 Repeated falls; I10 Essential (primary) hypertension
CPT/HCPCS: 82746

== ENCOUNTER → 2017-08-18 | Outpatient (REF) | payer MEDICARE ==
[2017-08-18 13:41] LABS: APPEARANCE, URINE TURBID (CLEAR); BACTERIA, URINE AUTO 1+ (NEGATIVE); BILIRUBIN, URINE AUTO NEGATIVE (NEGATIVE); BLOOD, URINE BLOOD NEGATIVE (NEGATIVE); COLOR, URINE YELLOW (YELLOW); GLUCOSE, URINE (UA) AUTO NEGATIVE (NEGATIVE); KETONE, URINE AUTO NEGATIVE (NEGATIVE); LEUKOCYTE ESTERASE, URINE AUTO 3+ (NEGATIVE); NITRITE, URINE AUTO NEGATIVE (NEGATIVE); PROTEIN, URINE AUTO NEGATIVE (NEGATIVE); RBC, URINE AUTO 19 /HPF (0-3); RENAL EPITHELIAL CELLS 1 /HPF; SPECIFIC GRAVITY URINE AUTO 1.009 (1.002-1.035); SQUAMOUS EPITHELIAL CELL UR AU 4 /HPF (0-6); TRANSITIONAL EPITHELIAL AUTO 1 /HPF; URIC ACID CRYSTALS SMALL; UROBILINOGEN, URINE AUTO 0.2 mg/dL (0.0-2.0); WBC, URINE AUTO TNTC /HPF (0-3)
== END ==
LOC: M SMT 12:51
DX: R32 Unspecified urinary incontinence (principal)
CPT/HCPCS: 81001

== ENCOUNTER → 2017-09-18 | Outpatient (REF) | payer MEDICARE | LOC: M SMT 13:10 | DX: R32 Unspecified urinary incontinence (principal) | CPT/HCPCS: 87086 ==

== ENCOUNTER → 2018-01-03 | Outpatient (REF) | payer MEDICARE ==
[2018-01-03 15:39] LABS: BASO # 0.1 10^3/uL (0.0-0.2); BASO % 0.7 % (0.0-1.0); EOS # 0.1 10^3/uL (0.0-0.50); EOS % 1.6 % (0.0-3.0); HEMATOCRIT 42.7 % (36.0-47.0); HEMOGLOBIN 13.6 g/dl (12.0-15.5); IMMATURE GRANULOCYTE % 0.2 % (0-3.0); LYMPH # 2.2 10^3/uL (1.5-4.5); MEAN CORPUSCULAR HEMOGLOBIN 33.1 pg (27.0-33.0); MEAN CORPUSCULAR HGB CONC 31.9 g/dl (32.0-36.5); MEAN CORPUSCULAR VOLUME 103.9 fl (80.0-96.0); MONO # 0.9 10^3/uL (0.0-0.8); MONO % 11.3 % (0.0-5.0); NEUTROPHILS # 4.8 10^3/uL (1.8-7.7); NEUTROPHILS % 59.2 % (36.0-66.0); PLATELET COUNT, AUTOMATED 319 10^3/uL (150-450); RED BLOOD COUNT 4.11 10^6/uL (4.00-5.40); RED CELL DISTRIBUTION WIDTH 12.5 % (11.5-14.5); WHITE BLOOD COUNT 8.1 10^3/uL (4.0-10.0)
[2018-01-03 15:59] LABS: ALBUMIN/GLOBULIN RATIO 1.11 (1.00-1.93); ALKALINE PHOSPHATASE 149 U/L (45-117); ALT/SGPT 30 U/L (12-78); ANION GAP 10 MEQ/L (8-16); AST/SGOT 40 U/L (7-37); BILIRUBIN,TOTAL 0.4 MG/DL (0.2-1.0); BLOOD UREA NITROGEN 20 MG/DL (7-18); CALCIUM LEVEL 8.8 MG/DL (8.8-10.2); CARBON DIOXIDE LEVEL 30 MEQ/L (21-32); CHLORIDE LEVEL 103 MEQ/L (98-107); CREATININE FOR GFR 0.86 MG/DL (0.55-1.30); FREE T4 1.08 NG/DL (0.76-1.46); GLOMERULAR FILTRATION RATE > 60.0 (>32); GLUCOSE, FASTING 104 MG/DL (70-100); POTASSIUM SERUM 3.8 MEQ/L (3.5-5.1); SODIUM LEVEL 143 MEQ/L (136-145); TOTAL PROTEIN 7.6 GM/DL (6.4-8.2)
== END ==
LOC: M SFHCPLAZ 12:51
DX: R19.7 Diarrhea, unspecified (principal); Z23 Encounter for immunization
CPT/HCPCS: 84443

== ENCOUNTER 2018-01-13 09:14 | Emergency (ER) | payer MEDICARE | END 2018-01-13 11:27 | disposition home or self-care (01) | LOC: M ED 09:14 | DX: S80.211A Abrasion, right knee, initial encounter (principal); W18.39XA Other fall on same level, initial encounter; Y92.018 Other place in single-family (private) house as the place of occurrence of the external cause; Z79.899 Other long term (current) drug therapy; Z79.82 Long term (current) use of aspirin; Z79.890 Hormone replacement therapy; Z88.0 Allergy status to penicillin; Z88.8 Allergy status to other drugs, medicaments and biological substances | CPT/HCPCS: 99284 ==

== ENCOUNTER → 2018-02-27 | Outpatient (REF) | payer MEDICARE ==
[2018-02-27 13:04] LABS: FREE T4 1.04 NG/DL (0.76-1.46)
== END ==
LOC: M SFHCADAM 10:38
DX: E03.9 Hypothyroidism, unspecified (principal)
CPT/HCPCS: 84443

== ENCOUNTER → 2018-02-28 | Outpatient (REF) | payer MEDICARE | LOC: M LAB REF 03-01 18:17 → M SFHCADAM 14:00 | DX: R19.4 Change in bowel habit (principal) ==

== ENCOUNTER → 2018-05-02 | Outpatient (CLI) | payer MEDICARE | LOC: M WUC 13:08 | DX: S22.42XA Multiple fractures of ribs, left side, initial encounter for closed fracture (principal); J98.11 Atelectasis; J90 Pleural effusion, not elsewhere classified; X58.XXXA Exposure to other specified factors, initial encounter; Y92.89 Other specified places as the place of occurrence of the external cause | CPT/HCPCS: 71101 ==

== ENCOUNTER → 2018-05-11 | Outpatient (REF) | payer MEDICARE ==
[2018-05-11 18:02] LABS: AMORPHOUS SEDIMENT SMALL (NEGATIVE); APPEARANCE, URINE TURBID (CLEAR); BACTERIA, URINE AUTO 2+ (NEGATIVE); BILIRUBIN, URINE AUTO NEGATIVE (NEGATIVE); BLOOD, URINE BLOOD 1+ (NEGATIVE); COLOR, URINE YELLOW (YELLOW); GLUCOSE, URINE (UA) AUTO NEGATIVE (NEGATIVE); KETONE, URINE AUTO TRACE mg/dL (NEGATIVE); LEUKOCYTE ESTERASE, URINE AUTO 3+ (NEGATIVE); MUCUS, URINE SMALL (NEGATIVE); NITRITE, URINE AUTO NEGATIVE (NEGATIVE); PROTEIN, URINE AUTO NEGATIVE (NEGATIVE); RBC, URINE AUTO 93 /HPF (0-3); SPECIFIC GRAVITY URINE AUTO 1.013 (1.002-1.035); SQUAMOUS EPITHELIAL CELL UR AU 6 /HPF (0-6); UROBILINOGEN, URINE AUTO 0.2 mg/dL (0.0-2.0); WBC, URINE AUTO TNTC /HPF (0-3)
== END ==
LOC: M SMT 16:46
DX: R32 Unspecified urinary incontinence (principal)
CPT/HCPCS: 81001

== ENCOUNTER → 2018-05-24 | Outpatient (REF) | payer MEDICARE ==
[2018-05-24 17:54] LABS: APPEARANCE, URINE CLEAR (CLEAR); BACTERIA, URINE AUTO 1+ (NEGATIVE); BILIRUBIN, URINE AUTO NEGATIVE (NEGATIVE); BLOOD, URINE BLOOD NEGATIVE (NEGATIVE); COLOR, URINE YELLOW (YELLOW); GLUCOSE, URINE (UA) AUTO NEGATIVE (NEGATIVE); KETONE, URINE AUTO TRACE mg/dL (NEGATIVE); LEUKOCYTE ESTERASE, URINE AUTO NEGATIVE (NEGATIVE); NITRITE, URINE AUTO NEGATIVE (NEGATIVE); PROTEIN, URINE AUTO NEGATIVE (NEGATIVE); RBC, URINE AUTO 1 /HPF (0-3); SPECIFIC GRAVITY URINE AUTO 1.016 (1.002-1.035); SQUAMOUS EPITHELIAL CELL UR AU 1 /HPF (0-6); UROBILINOGEN, URINE AUTO 0.2 mg/dL (0.0-2.0); WBC, URINE AUTO 2 /HPF (0-3)
== END ==
LOC: M SMT 16:59
DX: R32 Unspecified urinary incontinence (principal)
CPT/HCPCS: 81001

== ENCOUNTER → 2018-09-11 | Outpatient (REF) | payer MEDICARE ==
[~2018-09-11] MED LIST changes: +LEVO100T5 PO; -VITA1CAP40 PO; +VITA50005 PO
[2018-09-11 12:37] LABS: HEMATOCRIT 42.1 % (36.0-47.0); HEMOGLOBIN 13.8 g/dl (12.0-15.5); MEAN CORPUSCULAR HEMOGLOBIN 33.9 pg (27.0-33.0); MEAN CORPUSCULAR HGB CONC 32.8 g/dl (32.0-36.5); MEAN CORPUSCULAR VOLUME 103.4 fl (80.0-96.0); PLATELET COUNT, AUTOMATED 292 10^3/uL (150-450); RED BLOOD COUNT 4.07 10^6/uL (4.00-5.40)
[2018-09-11 13:19] LABS: ALBUMIN 3.8 GM/DL (3.2-5.2); ALT/SGPT 9 U/L (12-78); BILIRUBIN,TOTAL 0.5 MG/DL (0.2-1.0); BLOOD UREA NITROGEN 24 MG/DL (7-18); CALCIUM LEVEL 8.7 MG/DL (8.8-10.2); CARBON DIOXIDE LEVEL 25 MEQ/L (21-32); CHLORIDE LEVEL 106 MEQ/L (98-107); CHOLESTEROL LEVEL 212 MG/DL (<200); CHOLESTEROL RISK RATIO 2.038 (<5); CREATININE FOR GFR 0.96 MG/DL (0.55-1.30); FOLATE > 24.0 NG/ML (>5.4); FREE T4 1.16 NG/DL (0.76-1.46); GLOMERULAR FILTRATION RATE 59.4 (>32); GLUCOSE, FASTING 95 MG/DL (70-100); HDL CHOLESTEROL 104 MG/DL (>40); LDL CHOLESTEROL 90 MG/DL (<100); NON-HDL-C 108 MG/DL; POTASSIUM SERUM 4.4 MEQ/L (3.5-5.1); SODIUM LEVEL 142 MEQ/L (136-145); TOTAL PROTEIN 7.3 GM/DL (6.4-8.2); TRIGLYCERIDES LEVEL 90 MG/DL (<150); VITAMIN B12 LEVEL 674 PG/ML (247-911)
== END ==
LOC: M SFHCADAM 11:10
PROVIDERS: ATTEND Family Medicine
DX: D75.89 Other specified diseases of blood and blood-forming organs (principal); F32.2 Major depressive disorder, single episode, severe without psychotic features; I11.9 Hypertensive heart disease without heart failure; E03.9 Hypothyroidism, unspecified; F02.80 Dementia in other diseases classified elsewhere, unspecified severity, without behavioral disturbance, psychotic disturbance, mood disturbance, and anxiety
CPT/HCPCS: 80053; 80061; 82607; 82746; 84439; 84443; 85027; G0463

== ENCOUNTER → 2018-11-07 | Outpatient (REF) | payer MEDICARE ==
[~2018-11-07] MED LIST changes: -ACET50TA PO; -ASPI1TAB PO; +ASPI81TA26 PO; -FOSI PO; +FOSI1TAB PO; +LATA0.0013 OU; +LATA0.009 OU; -LATA5OPD OU; +MAPA500T17 PO
[2018-11-07 18:45] LABS: APPEARANCE, URINE CLOUDY (CLEAR); BACTERIA, URINE AUTO 1+ (NEGATIVE); BILIRUBIN, URINE AUTO NEGATIVE (NEGATIVE); BLOOD, URINE BLOOD NEGATIVE (NEGATIVE); COLOR, URINE YELLOW (YELLOW); GLUCOSE, URINE (UA) AUTO NEGATIVE (NEGATIVE); KETONE, URINE AUTO TRACE mg/dL (NEGATIVE); LEUKOCYTE ESTERASE, URINE AUTO 3+ (NEGATIVE); NITRITE, URINE AUTO NEGATIVE (NEGATIVE); PROTEIN, URINE AUTO NEGATIVE (NEGATIVE); RBC, URINE AUTO 9 /HPF (0-3); SPECIFIC GRAVITY URINE AUTO 1.013 (1.002-1.035); SQUAMOUS EPITHELIAL CELL UR AU 0 /HPF (0-6); UROBILINOGEN, URINE AUTO 0.2 mg/dL (0.0-2.0); WBC, URINE AUTO TNTC /HPF (0-3)
== END ==
LOC: M SMT 17:11
PROVIDERS: ATTEND Nurse Practitioner Women's Health
DX: R32 Unspecified urinary incontinence (principal)
CPT/HCPCS: 51701; 51798; 81001; 87088; 87186; G0463

== ENCOUNTER → 2018-11-22 | Outpatient (REF) | payer MEDICARE | LOC: M SMT 13:04 | PROVIDERS: ATTEND Nurse Practitioner Women's Health | DX: N39.0 Urinary tract infection, site not specified (principal) ==

== ENCOUNTER → 2019-01-15 | Outpatient (CLI) | payer MEDICARE ==
--- NOTE | 2019-01-15 18:50 | REP ---
Bilateral temporomandibular joint radiographs: History: Injury in a fall. Dislocation of the temporomandibular joint. Findings: Metallic denture components are seen within the oral cavity. There is no visible mandibular fracture or condylar neck fracture. Open views show very limited opening and no discernible opening translation for either mandibular condyle. The bony temporal fossa appears rather deep on both sides on these images. This may be developmental. There is no evidence of arthropathy however. No erosive or destructive lesion is seen. Impression: No discernible opening translation indicating minimal range of motion. No fracture or bony destructive lesion is radiographically apparent. Electronically Signed by Elroy Lei MD 01/15/2019 07:30 P
== END ==
LOC: M ADAMS 11:40
PROVIDERS: ATTEND Physician Assistant
DX: S03.00XD Dislocation of jaw, unspecified side, subsequent encounter (principal)

== ENCOUNTER → 2019-04-29 | Outpatient (REF) | payer MEDICARE | LOC: M LAB REF 11:07 | PROVIDERS: ATTEND Physician Assistant | DX: N39.0 Urinary tract infection, site not specified (principal) ==

== ENCOUNTER → 2019-05-01 | Outpatient (CLI) | payer MEDICARE ==
--- NOTE | 2019-05-01 17:48 | REP ---
Four views right ankle and four views right foot: 05/01/2019. Indication: Right foot and ankle pain. Comparison: 10/07/2013. Findings: Diffuse osteopenia is present. There is no evidence of acute fracture, subluxation or dislocation. No erosive lesions of the visualized bones are present. Bony alignment is anatomic. Small anterior calcaneal spur is present. Impression: No acute fracture. Electronically Signed by Omari Steen DO 05/01/2019 05:39 P
== END ==
LOC: M WUC 16:52
PROVIDERS: ATTEND Nurse Practitioner Family
DX: M25.571 Pain in right ankle and joints of right foot (principal)

== ENCOUNTER → 2019-06-07 | Outpatient (REF) | payer MEDICARE | LOC: M LAB REF 09:17 | PROVIDERS: ATTEND Physician Assistant | DX: R30.0 Dysuria (principal) ==

== ENCOUNTER 2019-07-09 11:19 | Emergency (ER) | payer MEDICARE ==
[~2019-07-09] VITALS: Ht 152.4 cm; Wt 63.6 kg
[2019-07-09] MEDS ORDERED: OMEP-218 (11:37)
[2019-07-09] MEDS ORDERED: CARB1TAB97 (11:37)
[2019-07-09] MEDS ORDERED: TAMS1CAP17 (11:37)
[2019-07-09 12:20] LABS: BASO % 0.4 % (0.0-1.0); EOS % 0.4 % (0.0-3.0); HEMATOCRIT 43.4 % (36.0-47.0); HEMOGLOBIN 13.9 g/dl (12.0-15.5); LYMPH # 1.6 10^3/uL (1.5-5.0); LYMPH % 20.4 % (24.0-44.0); MEAN CORPUSCULAR HEMOGLOBIN 33.9 pg (27.0-33.0); MEAN CORPUSCULAR VOLUME 105.9 fl (80.0-96.0); MONO # 0.7 10^3/uL (0.0-0.8); MONO % 8.3 % (0.0-5.0); NEUTROPHILS # 5.6 10^3/uL (1.5-8.5); NEUTROPHILS % 70.1 % (36.0-66.0); PLATELET COUNT, AUTOMATED 259 10^3/uL (150-450)
[2019-07-09 12:33] LABS: INR 1.05; PROTHROMBIN TIME 13.4 SECONDS (11.8-14.0)
--- NOTE | 2019-07-09 12:46 | REP ---
Clinical: Trauma. Fall. Confusion. Comparison: 04/29/2017. Technique: Axial noncontrast images from the skull base to the vertex with coronal re-formations. Findings: Age-related atrophy with periventricular leukomalacia and microvascular ischemic changes are appreciated. The ventricles and sulci are symmetric. Olguin-white differentiation is maintained. There is no evidence for acute intracranial hemorrhage, mass/mass effect, pathology or infarction. No extra-axial fluid collection. Calvarium is intact. Paranasal sinuses and mastoid air cells are clear. Impression: Age related atrophy and microvascular ischemic changes. No acute intracranial hemorrhage, infarction, or mass/mass effect. Electronically Signed by Kvng Tilley MD 07/09/2019 12:37 P
[2019-07-09 12:49] LABS: ALBUMIN 3.8 GM/DL (3.2-5.2); ALT/SGPT 9 U/L (12-78); BILIRUBIN,DIRECT 0.1 MG/DL (0.0-0.2); BILIRUBIN,TOTAL 0.5 MG/DL (0.2-1.0); BLOOD UREA NITROGEN 22 MG/DL (7-18); CARBON DIOXIDE LEVEL 23 MEQ/L (21-32); CHLORIDE LEVEL 108 MEQ/L (98-107); CK-MB VALUE MASS 2.9 NG/ML (<3.6); CPK CREATINE PHOSPHOKINASE 122 U/L (26-192); CREATININE FOR GFR 0.89 MG/DL (0.55-1.30); GLOMERULAR FILTRATION RATE > 60.0 (>32); GLUCOSE, FASTING 104 MG/DL (70-100); MB/CK RELATIVE INDEX 2.38 (< OR =4); POTASSIUM SERUM 3.8 MEQ/L (3.5-5.1); SODIUM LEVEL 140 MEQ/L (136-145); TOTAL PROTEIN 6.9 GM/DL (6.4-8.2); TROPONIN I < 0.02 NG/ML (< 0.10)
[2019-07-09] MEDS ORDERED: LIDOCAINE 2% 5ML JELLY UROJET TOP ONE (13:45)
[2019-07-09] MEDS ORDERED: CIPROFLOXACIN 400 MG in IV 1 EA IV ONE (15:45)
[2019-07-09] MEDS ORDERED: PYRI1TAB5 PO (16:12)
[2019-07-09] MEDS ORDERED: CIPR-249 PO (16:12)
[2019-07-09 16:57] VITALS: BP 145/77
--- NOTE | 2019-07-10 07:47 | ECGEPIP ---
[facility] - ED Test Date: 2019-07-09 Pat Name: CLAU FERRO Department: Room: - Gender: Female Web Administrator: GERMAIN : 1935 Requested By: MO Cabrera Order Number: [id number] Reading MD: Mo Crowe Measurements Intervals [place] Rate: 68 P: 46 IN: 147 QRS: 57 QRSD: 86 T: 71 QT: 390 QTc: 415 Interpretive Statements SINUS RHYTHM T waves less prominent than tracing done 04-29-17 Electronically Signed on 07-10-2019 7:47:15 EST by Mo Crowe
[2019-07-10] MEDS ORDERED: CIPR-249 PO (12:26)
[2019-07-10] MEDS ORDERED: PYRI1TAB5 PO (12:26)
== END 2019-07-09 17:04 | disposition home or self-care (01) ==
LOC: M ED 11:19
DX: N39.0 Urinary tract infection, site not specified (principal); I10 Essential (primary) hypertension; E78.5 Hyperlipidemia, unspecified; G20 Parkinson's disease; E07.9 Disorder of thyroid, unspecified; Z87.891 Personal history of nicotine dependence; Z88.0 Allergy status to penicillin; Z79.899 Other long term (current) drug therapy; Z79.82 Long term (current) use of aspirin
CPT/HCPCS: 70450; 80048; 80076; 81001; 82550; 82553; 84443; 84484; 85025; 85610; 87086; 93005; 93041; 94760; 96365; 99285; J0744

== ENCOUNTER 2019-09-14 18:19 | Inpatient (IN) | payer MEDICARE ==
[~2019-09-14] VITALS: Ht 152.4 cm; Wt 67.0 kg
[~2019-09-14 18:19] MED LIST changes: +CARB1TAB97 PO; +CIPR-249 PO; +OMEP-218 PO; +PYRI1TAB5 PO; +TAMS1CAP17 PO
[2019-09-14 20:44] LABS: BASO # 0.1 10^3/uL (0.0-0.2); BASO % 0.6 % (0.0-1.0); EOS # 0.1 10^3/uL (0.0-0.5); EOS % 0.8 % (0.0-3.0); HEMATOCRIT 41.5 % (36.0-47.0); HEMOGLOBIN 13.3 g/dl (12.0-15.5); LYMPH # 1.9 10^3/uL (1.5-5.0); MEAN CORPUSCULAR HEMOGLOBIN 33.4 pg (27.0-33.0); MEAN CORPUSCULAR VOLUME 104.3 fl (80.0-96.0); MONO # 0.9 10^3/uL (0.0-0.8); MONO % 10.3 % (0.0-5.0); NEUTROPHILS # 5.4 10^3/uL (1.5-8.5); NEUTROPHILS % 65.1 % (36.0-66.0); PLATELET COUNT, AUTOMATED 290 10^3/uL (150-450); RED BLOOD COUNT 3.98 10^6/uL (4.00-5.40); WHITE BLOOD COUNT 8.3 10^3/uL (4.0-10.0)
--- NOTE | 2019-09-14 20:54 | REPVR ---
PROCEDURE INFORMATION: Exam: CT Head Without Contrast Exam date and time: 09/14/2019 8:35 PM Age: 83 years old Clinical indication: Injury or trauma; Fall; Initial encounter; Blunt trauma (contusions or hematomas); Additional info: Fall, headache TECHNIQUE: Imaging protocol: Computed tomography of the head without contrast. Radiation optimization: All CT scans at this facility use at least one of these dose optimization techniques: automated exposure control; mA and/or kV adjustment per patient size (includes targeted exams where dose is matched to clinical indication); or iterative reconstruction. COMPARISON: CT Head without contrast 07/09/2019 12:26 PM FINDINGS: Brain: Bilateral basal ganglia calcifications. There is moderate to severe age-related parenchymal volume loss. White matter changes are demonstrated in the subcortical, centrum semiovale and periventricular white matter consistent with age related small vessel white matter angiopathic gliosis. Ventricles: The degree of ventricular dilatation is normal for age and/or degree of atrophy present. Bones/joints: Unremarkable. No acute fracture. Sinuses: Visualized sinuses are unremarkable. No fluid levels. Mastoid air cells: Visualized mastoid air cells are well aerated. Soft tissues: Unremarkable. IMPRESSION: 1. There is moderate to severe age-related parenchymal volume loss. White matter changes are demonstrated in the subcortical, centrum semiovale and periventricular white matter consistent with age related small vessel white matter angiopathic gliosis. 2. The degree of ventricular dilatation is normal for age and/or degree of atrophy present. Electronically signed by: Alonzo Pozo On 09/14/2019 20:53:22 PM
--- NOTE | 2019-09-14 20:59 | REPVR ---
PROCEDURE INFORMATION: Exam: CT Lumbar Spine Without Contrast Exam date and time: 09/14/2019 8:35 PM Age: 83 years old Clinical indication: Injury or trauma; Fall; Initial encounter; Blunt trauma (contusions or hematomas); Additional info: Fall, headache, central lumbar bruising TECHNIQUE: Imaging protocol: Computed tomography images of the lumbar spine without contrast. Radiation optimization: All CT scans at this facility use at least one of these dose optimization techniques: automated exposure control; mA and/or kV adjustment per patient size (includes targeted exams where dose is matched to clinical indication); or iterative reconstruction. COMPARISON: CT Spine, lumbar w/o contrast 04/29/2017 2:02 PM FINDINGS: Vertebrae: Retrolisthesis of L2 on L3 and anterolisthesis of L5 on S1. Shallow levoscoliosis. Discs/Spinal canal/Neural foramina: There is a moderate central spinal stenosis at L1-L2 secondary to diffuse annular bulging, thickened ligamentum flavum without facet joint arthropathy. There is a moderate central spinal stenosis at L2-L3 secondary to diffuse annular bulging, retrolisthesis of L2 on L3, thickened ligamentum flavum without facet joint arthropathy. Moderate to severe bilateral foraminal stenosis. There is a mild central spinal stenosis at L3-L4 secondary to diffuse annular bulging, thickened ligamentum flavum without facet joint arthropathy. Moderate to severe bilateral foraminal stenosis. There is a moderate central spinal stenosis at L4-L5 secondary to diffuse annular bulging, thickened ligamentum flavum with mild facet joint arthropathy. Mild bilateral foraminal stenosis. Bulging annulus at L5-S1 with a central calcified disc protrusion abutting the ventral surface of the thecal sac and medial aspect of both S1 nerve root is a exit the thecal sac. Bilateral facet joint arthropathy. Moderate bilateral foraminal stenosis, left greater than right. Other bones/joints: Osteoporosis. Vasculature: Atherosclerotic calcifications in the abdominal aorta. No aneurysm. Soft tissues: Unremarkable. Other findings: There are 5 [id number] mobile lumbar segments. IMPRESSION: Multilevel spinal stenoses and degenerative spondylosis, moderate at L1-L2, moderate L2-L3, mild at L3-L4, moderate at L4-L5. Central calcified disc protrusion L5-S1 abuts the thecal sac and both S1 nerve roots as described above. No acute findings. Electronically signed by: Alonzo Pozo On 09/14/2019 20:59:15 PM
[2019-09-14 21:15] LABS: BLOOD UREA NITROGEN 27 MG/DL (7-18); CALCIUM LEVEL 8.9 MG/DL (8.8-10.2); CARBON DIOXIDE LEVEL 26 MEQ/L (21-32); CHLORIDE LEVEL 108 MEQ/L (98-107); CK-MB VALUE MASS 2.4 NG/ML (<3.6); CPK CREATINE PHOSPHOKINASE 141 U/L (26-192); CREATININE FOR GFR 0.94 MG/DL (0.55-1.30); GLOMERULAR FILTRATION RATE > 60.0 (>32); GLUCOSE, FASTING 110 MG/DL (70-100); POTASSIUM SERUM 4.1 MEQ/L (3.5-5.1); SODIUM LEVEL 142 MEQ/L (136-145); TROPONIN I < 0.02 NG/ML (< 0.10)
[2019-09-14] MEDS ORDERED: cefTRIAXone SOD 1 GM in D5W MINI-BAG PLUS 50 ML IV ONE (23:15)
--- NOTE | 2019-09-14 23:42 | HPEPDOC ---
[facility] Medical History & Physical Date of Admission Sep 14, 2019 Date of Service: Sep 14, 2019 Primary Care Physician: Josué Mayer MD Attending Physician: Josué Mayer MD History and Physical TIME OF SERVICE: 11:50 PM CHIEF COMPLAINT: Frequent falls HISTORY OF PRESENT ILLNESS: This is an 83-year-old female who came in with complaints of falling frequently. She fell this morning at her neighbor helped her up around 10 a MP Jad called her neighbor later on this evening saying she didn't feel well and her neighbor subsequently brought her to the hospital. Per Dr. Danielle the patient thinks it's "time to go to a home". The patient denied having headaches, chest pain, runny nose, cough, abdominal pain, nausea, vomiting, or diarrhea. Denied having any pain on any part of her body is result of falling. She was unable to provide a clear answer when asked if she hit her head. According to the patient's neighbor her son Braxton Thomas is working on placing his mother and a long-term in [facility], which is closer to where he lives. Per Dr. Danielle her UA was abnormal therefore, she received Rocephin REVIEW OF SYSTEMS: 12 point review of systems negative except as listed in HPI PAST MEDICAL/ SURGICAL HISTORY: Parkinson's with dementia hx of CVA / Carotid artery disease hx of CAD/MS Chronic HTN Hypothyroidism Aortic sclerosis hx of Macrocytic anemia Depression Appendectomy Hysterectomy Right ankle fracture repair SOCIAL HISTORY: Former smoker ALLERGIES: Please see below. HOME MEDICATIONS: Please see below. Vital Signs Date Time Temp Pulse Resp B/P (MAP) Pulse Ox O2 Delivery O2 Flow Rate FiO2 09/14/19 18:20 96.6 97 16 173/81 (111) 100 Room Air PHYSICAL EXAMINATION: GEN: well-nourished / well developed/ NAD HEENT: NCAT CVS: RRR/NMRG LUNGS: lungs are clear to auscultation bilaterally on room air ABDOMEN: Soft & not tender with palpation NEURO: speech is not dysarthric PSYCH: alert and oriented / able to understand and follow all commands LABORATORY DATA: Anion Gap 8, Glomerular Filtration Rate > 60.0, Calcium Level 8.9, Total Creatine Kinase 141, Creatine Kinase MB 2.4, Creatine Kinase MB Relative Index 1.70, Troponin I < 0.02 09/14/19 22:04: Urine Color YELLOW, Urine Appearance TURBIDH, Urine pH 5.0, Urine Specific [place] 1.025, Urine Protein 1+H, Urine Glucose (UA) NEGATIVE, Urine Ketones TRACEH, Urine Blood NEGATIVE, Urine Nitrite NEGATIVE, Urine Bilirubin NEGATIVE, Urine Urobilinogen 2.0H, Urine Leukocyte Esterase 3+H, Urine WBC (Auto) TNTCH, Urine RBC (Auto) 33H, Urine Hyaline Casts (Auto) 0, Urine Bacteria (Auto) 3+H, Urine Squamous Epithelial Cells 15, Urine Calcium Oxalate Cryst (Auto) SMALL, Urine Sperm (Auto) IMAGING: CT head " IMPRESSION: 1. There is moderate to severe age-related parenchymal volume loss. White matter changes are demonstrated in the subcortical, centrum semiovale and periventricular white matter consistent with age related small vessel white matter angiopathic gliosis. 2. The degree of ventricular dilatation is normal for age and/or degree of atrophy present. " CT lumbar spine " IMPRESSION: Multilevel spinal stenoses and degenerative spondylosis, moderate at L1-L2, moderate L2-L3, mild at L3-L4, moderate at L4- L5. Central calcified disc protrusion L5-S1 abuts the thecal sac and both S1 nerve roots as described above. No acute findings." Chest x-ray appears unremarkable but the final read is pending MICROBIOLOGY: Urine Culture, Received Pending ASSESSMENT: Ms. Thomas is an 83-year-old with a past medical history of Parkinson's CAD, CVA, HTN, hypothyroidism carotid artery disease, and depression who is admitted for long-term placement after having multiple falls. PLAN: 1. Fall/debility - Plan: Admit to medical floor/ fall precautions/PT eval/PFS consult for persistence with placement 2. Asymptomatic UTI Plan: Will not treat 3. Parkinson's with dementia - Plan: carbidopa levodopa 4. CAD/MS / hx of CVA / Carotid artery disease - Plan: Aspirin and pravastatin 5. Chronic HTN - Plan: tamsulosin and lisinopril 6. Hypothyroidism -Plan: Levothyroxine 7. Depression -Plan: Citalopram DVT PROPHYLAXIS: Lovenox DISPOSITION: custodial placement after more than 2 midnight's stay Home Medications Scheduled Aspirin (Aspirin EC) 81 Mg Tab, 81 MG PO DAILY Carbidopa/Levodopa (Carbidopa-Levo ER 50-200 Tab) 1 Each Tablet.er, 1 TAB PO QHS Carbidopa/Levodopa (Carbidopa-Levodopa 25-100 Tab) 1 Each Tablet, 1 TAB PO QID Citalopram Hydrobromide (Citalopram HBr) 10 Mg Tab, 10 MG PO BID Levothyroxine Sodium (Levothyroxine Sodium) 100 Mcg Tab, 100 MCG PO DAILY Lisinopril (Lisinopril) 5 Mg Tab, 5 MG PO QHS Multivitamins (Thera M Plus Tablet) 1 Tab Tab, 1 TAB PO DAILY Pravastatin Sodium (Pravastatin Sodium) 10 Mg Tab, 10 MG PO QHS Tamsulosin Hcl (Tamsulosin HCl) 0.4 Mg Capsule, 0.4 MG PO DAILY Scheduled PRN Acetaminophen (Acetaminophen) 325 Mg Tablet, 650 MG PO Q6H PRN for PAIN Omeprazole (Omeprazole) 20 Mg Capsule.dr, 20 MG PO DAILY PRN for INDIGESTION Allergies Coded Allergies: amoxicillin (Verified Allergy, Unknown, 07/09/19) clavulanic acid (Verified Allergy, Unknown, 07/09/19) A-FIB/CHADSVASC A-FIB History Current/History of A-Fib/PAF?: No Current PO Anticoag Therapy: No KATLYN FERNÁNDEZ MD Sep 14, 2019 23:42
[2019-09-14] MEDS ORDERED: MOM 30ML SUSPENSION UDC PO PRN (23:45)
[2019-09-14] MEDS ORDERED: CARB25TA9 PO (23:45)
[2019-09-14] MEDS ORDERED: MAALOX 30 ML SUSP *UDC PO PRN (23:45)
[2019-09-14] MEDS ORDERED: ACET1TAB55 PO (23:45)
[2019-09-15 03:33] VITALS: BP 167/77
[2019-09-15] MEDS: ENOXAPARIN 40 MG/0.4 ML SYRINGE (J1650) SC SCH (05:37)
[2019-09-15 06:00] VITALS: BP 137/63
[2019-09-15 06:05] LABS: HEMATOCRIT 37.8 % (36.0-47.0); HEMOGLOBIN 12.2 g/dl (12.0-15.5); MEAN CORPUSCULAR HEMOGLOBIN 33.8 pg (27.0-33.0); MEAN CORPUSCULAR HGB CONC 32.3 g/dl (32.0-36.5); MEAN CORPUSCULAR VOLUME 104.7 fl (80.0-96.0); PLATELET COUNT, AUTOMATED 274 10^3/uL (150-450); RED BLOOD COUNT 3.61 10^6/uL (4.00-5.40); WHITE BLOOD COUNT 8.2 10^3/uL (4.0-10.0)
[2019-09-15] MEDS: ACETAMINOPHEN TAB 650MG DOSE (2X325MG) PO PRN ×2 (06:08→17:02)
[2019-09-15 06:21] LABS: BLOOD UREA NITROGEN 21 MG/DL (7-18); CALCIUM LEVEL 8.8 MG/DL (8.8-10.2); CARBON DIOXIDE LEVEL 28 MEQ/L (21-32); CHLORIDE LEVEL 107 MEQ/L (98-107); GLOMERULAR FILTRATION RATE > 60.0 (>32); GLUCOSE, FASTING 113 MG/DL (70-100); MAGNESIUM LEVEL 1.9 MG/DL (1.8-2.4); POTASSIUM SERUM 3.4 MEQ/L (3.5-5.1); SODIUM LEVEL 139 MEQ/L (136-145)
[2019-09-15 07:20] VITALS: BP 165/92
--- NOTE | 2019-09-15 07:53 | ECGEPIP ---
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
[2019-09-15 08:25] LABS: ALBUMIN 3.3 GM/DL (3.2-5.2); ALT/SGPT 25 U/L (12-78); BILIRUBIN,TOTAL 0.4 MG/DL (0.2-1.0); TOTAL PROTEIN 6.6 GM/DL (6.4-8.2)
--- NOTE | 2019-09-15 08:29 | REP ---
Portable chest x-ray: Single view. History: Chest pain. Comparison study: May 02, 2018. Findings: The lungs are well inflated and clear. Pleural angles are sharp. The heart is not enlarged. Increased density overlying the heart is felt be due to a hiatal hernia. This is unchanged. Pulmonary vasculature is not increased. There is diffuse osteopenia. Old healed rib fractures are noted on the left. Impression: No active disease. Large hiatal hernia. Electronically Signed by Elroy Lei MD 09/15/2019 08:21 A
[2019-09-15] MEDS: DOCUSATE SODIUM 100 MG CAP PO SCH ×2 (09:00→20:00)
--- NOTE | 2019-09-15 09:12 | REP ---
CT brain without contrast: History: Injury in a fall. Comparison head CT study September 14, 2019. CT findings: Digital preliminary choreography director radiograph is unremarkable. Bone window settings demonstrate vascular calcification in the internal carotid arteries. No skull fracture is seen. There is some subtle scalp swelling in the right occipital region. There is no evidence of intracranial hemorrhage. Moderate generalized atrophy is seen. Small vessel atherosclerotic changes are noted. There is physiologic calcification of the basal ganglia bilaterally. No extra-axial fluid collection is seen. No infarct, mass, or midline shift is observed. Impression: Generalized atrophy, small vessel changes again noted. There is no evidence of skull fracture or intracranial injury. No acute intracranial abnormality. Vascular calcification is again noted. Electronically Signed by Elroy Lei MD 09/15/2019 09:59 A
[2019-09-15 10:00] VITALS: BP 164/89
[2019-09-15] MEDS: POTASSIUM CHLORIDE 10 MEQ SR TABLET PO SCH ×2 (10:56→20:01)
--- NOTE | 2019-09-15 11:00 | IPNPDOC ---
Subjective Date Seen The patient was seen on 09/15/19. Subjective Chief Complaint/HPI "Will you untie me?" Patient is not tied in any way. Clearly confused and meaningful ROS not obtainable. Answers all queries negatively. General: Reports: ROS Unobtainable Objective Physical Examination General Exam: Positive: Alert, Cooperative, No Acute Distress Eye Exam: Positive: PERRLA, EOMI Neck Exam: Positive: Supple; Negative: thyromegaly Chest Exam: Positive: Clear to auscultation; Negative: Rales Heart Exam: Positive: Tachycardic, Regular Rhythm, Murmurs (Base and LSB, /) Abdomen Exam: Positive: Normal bowel sounds, Soft; Negative: Tenderness Extremity Exam: Negative: Clubbing, Edema Skin Exam: Positive: Nl turgor and temperature; Negative: Rash Neuro Exam: Positive: Normal Speech, Other (spontaneous movement. was up unsupervised and fell striking head this am. no tremor observed but bradyphrenic) Psych Exam: Negative: Memory Intact, Oriented x 3 Assessment /Plan Problems (1) Falls Status: Chronic Problem Text: Old rib fractures noted in left 7th and 8th ribs. these areas are not tender today. Fall this am, ct done which was negative post event. she also had ct on admission. Gait instability could be secondary to UTI, neuropathy, dementia, or cardiovascular cause. (2) UTI (urinary tract infection) Status: Acute Response to Treatment: Stable Problem Text: started ceftriaxone; culture pending. no fever so doubt infection associated encephalopathy. 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 if either is depleted, could contribute to position sense impairment as well as dementia. (4) Vascular dementia Status: Chronic Response to Treatment: Worse Problem Text: from HxPx it appears son is pursuing placement options in [place] since that is closer to his residence. NPH could cause dementia with gait difficulties but radiologist believes intraventricular volumes are not highly suggestive of NPH. Consider Neuro consult for confirmation. Plan/VTE VTE Prophylaxis Ordered?: Yes VS, I&O, 24H, Fishbone Vital Signs/I&O Vital Signs Date Time Temp Pulse Resp B/P (MAP) Pulse Ox O2 Delivery O2 Flow Rate FiO2 09/15/19 07:20 97.8 114 16 165/92 (116) 96 Room Air I&O- Last 24 Hours up to 6 AM 09/15/19 06:00 Intake Total 170 ml Output Total 50 ml Balance 120 ml Laboratory Data 24H LABS Laboratory Tests 2 09/14/19 20:33: Immature Granulocyte % (Auto) 0.2, Neutrophils (%) (Auto) 65.1, Lymphocytes (%) (Auto) 23.0L, Monocytes (%) (Auto) 10.3H, Eosinophils (%) (Auto) 0.8, Basophils (%) (Auto) 0.6, Neutrophils # (Auto) 5.4, Lymphocytes # (Auto) 1.9, Monocytes # (Auto) 0.9H, Eosinophils # (Auto) 0.1, Basophils # (Auto) 0.1, Nucleated Red Blood Cells % (auto) 0.0, Anion Gap 8, Glomerular Filtration Rate > 60.0, Calcium Level 8.9, Total Creatine Kinase 141, Creatine Kinase MB 2.4, Creatine Kinase MB Relative Index 1.70, Troponin I < 0.02 09/14/19 22:04: Urine Color YELLOW, Urine Appearance TURBIDH, Urine pH 5.0, Urine Specific [place] 1.025, Urine Protein 1+H, Urine Glucose (UA) NEGATIVE, Urine Ketones TRACEH, Urine Blood NEGATIVE, Urine Nitrite NEGATIVE, Urine Bilirubin NEGATIVE, Urine Urobilinogen 2.0H, Urine Leukocyte Esterase 3+H, Urine WBC (Auto) TNTCH, Urine RBC (Auto) 33H, Urine Hyaline Casts (Auto) 0, Urine Bacteria (Auto) 3+H, Urine Squamous Epithelial Cells 15, Urine Calcium Oxalate Cryst (Auto) SMALL, Urine Sperm (Auto) 09/15/19 05:41: Nucleated Red Blood Cells % (auto) 0.0, Anion Gap 4L, Glomerular Filtration Rate > 60.0, Calcium Level 8.8, Magnesium Level 1.9, Total Bilirubin 0.4, Aspartate Amino Transf (AST/SGOT) 22, Alanine Aminotransferase (ALT/SGPT) 25, Alkaline Phosphatase 115, Total Protein 6.6, Albumin 3.3, Albumin/Globulin Ratio 1.00 CBC/BMP Laboratory Tests 09/14/19 20:33 09/15/19 05:41 Microbiology Microbiology 09/15/19 Blood Culture, Received Pending 09/15/19 Blood Culture, Received Pending 09/14/19 Urine Culture, Received Pending Jase Licona MD Sep 15, 2019 11:00
[2019-09-15 11:06] LABS: FREE T4 1.09 NG/DL (0.76-1.46); THYROID STIMULATING HORMONE 0.581 uIU/ML (0.358-3.740)
[2019-09-15 23:30] VITALS: BP 168/94
[2019-09-16 00:30] VITALS: BP 152/84
[2019-09-16] MEDS: PRAVASTATIN 10 MG TAB PO SCH ×2 (01:27→20:45)
[2019-09-16] MEDS: lisinopriL 5 MG TAB PO SCH ×2 (01:27→20:44)
[2019-09-16] MEDS: CitaloPRAM (CeleXA) 10 MG TABLET PO SCH ×3 (01:27→20:44)
[2019-09-16] MEDS: SINEMET**CR** 25/100 TABCR PO SCH ×2 (01:28→20:43)
[2019-09-16] MEDS: SINEMET 25-100 MG TAB PO SCH ×4 (05:30→17:36)
[2019-09-16] MEDS: LEVOTHYROXINE 100MCG TABLET (0.1MG) PO SCH (05:30)
[2019-09-16] MEDS: ENOXAPARIN 40 MG/0.4 ML SYRINGE (J1650) SC SCH (05:30)
[2019-09-16 06:00] VITALS: BP 164/78
[2019-09-16] MEDS ORDERED: TAMSULOSIN 0.4 MG CAP PO SCH (09:00)
[2019-09-16] MEDS: ASPIRIN 81 MG ENTERIC TAB PO SCH (09:12)
[2019-09-16] MEDS: DOCUSATE SODIUM 100 MG CAP PO SCH ×2 (09:13→20:43)
[2019-09-16] MEDS: OMEPRAZOLE 20 MG CAP PO SCH (09:13)
[2019-09-16] MEDS: POTASSIUM CHLORIDE 10 MEQ SR TABLET PO SCH ×2 (09:13→20:43)
[2019-09-16] MEDS: MULTIVITAMINS/MINERALS THERAP 1 TAB PO SCH (09:13)
[2019-09-16] MEDS: TAMSULOSIN 0.4 MG CAP PO SCH (09:13)
[2019-09-16 09:44] LABS: VITAMIN B12 LEVEL 424 PG/ML (247-911)
[2019-09-16 09:45] LABS: FOLATE > 24.0 NG/ML (>5.4)
[2019-09-16 10:00] VITALS: BP 137/70
--- NOTE | 2019-09-16 10:47 | IPNPDOC ---
Subjective Date Seen The patient was seen on 09/16/19. Subjective Chief Complaint/HPI Pt with baseline dementia, nursing without new concerns. Pt also without concerns. She denies pain. Constitutional: Denies: Chills, Fever Pulmonary: Denies: Dyspnea, Cough Cardiovascular: Denies: Chest Pain, Palpitations Gastrointestinal: Denies: Nausea, Vomiting, Diarrhea Objective Physical Examination General Exam: Positive: Alert, Cooperative, No Acute Distress Neck Exam: Positive: Supple Chest Exam: Positive: Clear to auscultation; Negative: Rales Heart Exam: Positive: Rate Normal, Tachycardic, Regular Rhythm, Murmurs (Base and LSB, 09/12) Abdomen Exam: Positive: Normal bowel sounds, Soft; Negative: Tenderness Extremity Exam: Negative: Edema Skin Exam: Positive: Nl turgor and temperature Neuro Exam: Positive: Normal Speech, Other (spontaneous movement. was up unsupervised and fell striking head this am. no tremor observed but bradyphrenic) Psych Exam: Negative: Memory Intact, Oriented x 3 Assessment /Plan Problems (1) Falls Status: Chronic Problem Text: Old rib fractures noted in left 7th and 8th ribs. these areas are not tender today. Fall this am, ct done which was negative post event. she also had ct on admission. Gait instability could be secondary to UTI, neuropathy, dementia, or cardiovascular cause. (2) UTI (urinary tract infection) Status: Acute Response to Treatment: Stable Problem Text: 09/15 Rocephin DC 09/14 after culture results revealed contaminated specimen. 09/14 started ceftriaxone; culture pending. no fever so doubt infection associated encephalopathy. 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 if either is depleted, could contribute to position sense impairment as well as dementia. (4) Vascular dementia Status: Chronic Response to Treatment: Worse Problem Text: 09/15 await PFS involvement, plan to DC home in AM vs SNF for placement. 09/14 from HxPx it appears son is pursuing placement options in [place] since that is closer to his residence. NPH could cause dementia with gait difficulties but radiologist believes intraventricular volumes are not highly suggestive of NPH. Consider Neuro consult for confirmation. Plan/VTE VTE Prophylaxis Ordered?: Yes VS, I&O, 24H, Fishbone Vital Signs/I&O Vital Signs Date Time Temp Pulse Resp B/P (MAP) Pulse Ox O2 Delivery O2 Flow Rate FiO2 09/16/19 10:00 98.2 74 18 137/70 (92) 96 Room Air I&O- Last 24 Hours up to 6 AM 09/16/19 06:00 Intake Total 850 ml Output Total 175 ml Balance 675 ml Laboratory Data Microbiology Microbiology 09/15/19 Blood Culture - Preliminary, Resulted No growth after 24 hours . All specim... 09/15/19 Blood Culture - Preliminary, Resulted No growth after 24 hours . All specim... 09/14/19 Urine Culture - Final, Complete KARLI MOYA PA-C Sep 16, 2019 10:47
[2019-09-16 14:00] VITALS: BP 140/67
[2019-09-16 18:00] VITALS: BP 136/64
[2019-09-16 22:00] VITALS: BP 130/80
[2019-09-17 06:00] VITALS: BP 128/64
[2019-09-17] MEDS: ENOXAPARIN 40 MG/0.4 ML SYRINGE (J1650) SC SCH (06:10)
[2019-09-17] MEDS: SINEMET 25-100 MG TAB PO SCH ×4 (06:10→17:57)
[2019-09-17] MEDS: LEVOTHYROXINE 100MCG TABLET (0.1MG) PO SCH (06:10)
[2019-09-17 07:00] LABS: HEMATOCRIT 37.3 % (36.0-47.0); MEAN CORPUSCULAR HEMOGLOBIN 33.9 pg (27.0-33.0); MEAN CORPUSCULAR HGB CONC 32.2 g/dl (32.0-36.5); MEAN CORPUSCULAR VOLUME 105.4 fl (80.0-96.0); PLATELET COUNT, AUTOMATED 256 10^3/uL (150-450); RED BLOOD COUNT 3.54 10^6/uL (4.00-5.40); WHITE BLOOD COUNT 9.6 10^3/uL (4.0-10.0)
[2019-09-17] MEDS: ASPIRIN 81 MG ENTERIC TAB PO SCH (08:42)
[2019-09-17] MEDS: POTASSIUM CHLORIDE 10 MEQ SR TABLET PO SCH ×2 (08:42→20:41)
[2019-09-17] MEDS: TAMSULOSIN 0.4 MG CAP PO SCH (08:42)
[2019-09-17] MEDS: MULTIVITAMINS/MINERALS THERAP 1 TAB PO SCH (08:42)
[2019-09-17] MEDS: DOCUSATE SODIUM 100 MG CAP PO SCH ×2 (08:42→20:40)
[2019-09-17] MEDS: OMEPRAZOLE 20 MG CAP PO SCH (08:42)
[2019-09-17] MEDS: CitaloPRAM (CeleXA) 10 MG TABLET PO SCH ×2 (08:42→20:40)
[2019-09-17 20:40] VITALS: BP 152/90
[2019-09-17] MEDS: PRAVASTATIN 10 MG TAB PO SCH (20:40)
[2019-09-17] MEDS: lisinopriL 5 MG TAB PO SCH (20:40)
[2019-09-17] MEDS: SINEMET**CR** 25/100 TABCR PO SCH (20:41)
--- NOTE | 2019-09-17 22:25 | DSES ---
DATE OF ADMISSION: 09/14/2019 DATE OF DISCHARGE [facility] (SNF) SUMMARY PRIMARY CARE PROVIDER (PCP): Dr. Josué Mayer ATTENDING TODAY: Dr. Josué Mayer HISTORY: This is an 83-year-old female patient who resides at home with her family, who has been having increasing falls. This morning she fell at home with her neighbor having to help get her up and subsequently brought her to the hospital. Patient denied any symptoms or pain in any part of her body. It is unclear whether she struck her head as the patient is a poor historian. Her family is working on placement for her from the outpatient setting in the [facility] so that she can be closer to family. She was admitted to the hospital for a fall, debility, asymptomatic urinary tract infection, Parkinson's disease with dementia. During her hospitalization, she has remained medically stable. Her urine culture was negative and, therefore, her antibiotics were discontinued. She was then seen by physical therapy who feel as though she is only safe for discharge to rehab. She did undergo CT scan of the head with generalized atrophy, small vessel changes noted. No evidence of fracture or intracranial injury. She also underwent lumbar CT with multilevel spinal stenosis and degenerative spondylosis. No acute findings were noted. Chest x-ray on admission was also obtained with no active disease but a large hiatal hernia was noted. DISCHARGE DIAGNOSES: Falls. Dementia. Parkinson's disease. Macrocytosis without anemia. History of CVA. Coronary artery disease. History of myocardial infarction (DC). Hypertension. Hypothyroidism. Discharge medications and plan will be summarized at time of discharge from the hospital.
[2019-09-18] MEDS: LEVOTHYROXINE 100MCG TABLET (0.1MG) PO SCH (05:38)
[2019-09-18] MEDS: SINEMET 25-100 MG TAB PO SCH ×3 (05:38→13:39)
[2019-09-18] MEDS: ENOXAPARIN 40 MG/0.4 ML SYRINGE (J1650) SC SCH (05:39)
[2019-09-18 06:00] VITALS: BP 125/54
[2019-09-18] MEDS: TAMSULOSIN 0.4 MG CAP PO SCH (09:02)
[2019-09-18] MEDS: OMEPRAZOLE 20 MG CAP PO SCH (09:02)
[2019-09-18] MEDS: ASPIRIN 81 MG ENTERIC TAB PO SCH (09:02)
[2019-09-18] MEDS: CitaloPRAM (CeleXA) 10 MG TABLET PO SCH (09:02)
[2019-09-18] MEDS: DOCUSATE SODIUM 100 MG CAP PO SCH (09:02)
[2019-09-18] MEDS: POTASSIUM CHLORIDE 10 MEQ SR TABLET PO SCH (09:02)
[2019-09-18] MEDS: MULTIVITAMINS/MINERALS THERAP 1 TAB PO SCH (09:02)
[2019-09-18] MEDS ORDERED: DOCU100C16 PO (12:40)
[2019-09-18] MEDS ORDERED: MOM30SS2 PO (12:40)
--- NOTE | 2019-09-18 18:12 | DSES ---
DATE OF ADMISSION: 09/14/2019 DATE OF DISCHARGE: 09/18/2019 The patient will transition to [facility] for rehabilitation with the potential for long-term care placement after that pending how her rehabilitation stay goes. Diet is as tolerated. Activity is as tolerated per physical therapy (PT) recommendations. MEDICATIONS: - docusate sodium 100 mg by mouth twice a day - magnesium hydroxide 30 mL by mouth daily as needed for constipation - Tylenol 650 by mouth every six hours as needed for pain - aspirin 81 mg one by mouth daily - Sinemet 50/200 extended release one tablet by mouth at bedtime - Sinemet 25/200 one tablet by mouth four times a day - citalopram 10 mg by mouth twice a day - levothyroxine sodium 100 mcg by mouth daily - lisinopril 5 mg by mouth at bedtime - multivitamin one tablet daily - omeprazole 20 mg daily as needed for indigestion - pravastatin 10 mg by mouth at bedtime - tamsulosin 0.4 mg by mouth daily The patient is discharged in stable and satisfactory condition at time of discharge.
--- NOTE | 2019-09-18 23:00 | ECHO ---
DATE OF PROCEDURE: 09/16/2019 AGE: 83 GENDER: Female HEIGHT: 60 inches WEIGHT: 149 pounds BODY SURFACE AREA: 1.55 m2 PATIENT LOCATION: Inpatient, [address] [place] [address], room 4213 REFERRING PHYSICIAN: Dr. Jase Licona INDICATION: Murmur. 2-D MEASUREMENTS: RV: 4.1 cm LV: 4.3 cm Septum: 1.0 cm Posterior wall: 1.0 cm Aortic root: 2.8 cm LA: 3.0 cm LVEF: 75% DOPPLER MEASUREMENTS: AV: 4.11 m/s LVOT: 1.07 m/s LVOT diameter: 1.8 cm AV mean gradient: 38 mmHg Dimensionless index: 0.26 MV-E: 81, A: 93, EA ratio: 0.9 Early mitral deceleration time: 190 ms E prime medial: 7 A prime medial: 9.5 E prime lateral: 7.7 Average E/E prime ratio: 11/PCWP: 15.9 mmHg PV: 0.8 m/s Pulmonary artery acceleration time: 100 ms RVSP: 37 mmHg IVC: 1.5 cm COMMENTS: Normal sinus rhythm without intraventricular conduction disturbance. M-mode and two-dimensional echocardiography was performed with pulsed, continuous wave, color flow and tissue Doppler studies. Normal left ventricular size and wall thickness with hyperkinetic wall motion. At least mildly dilated left atrium appreciated from the apical long axis and four-chamber projections with grade 1 LV diastolic dysfunction and mildly elevated estimated mean left atrial pressure. Slightly dilated right heart chambers with normal wall motion and Doppler evidence of mild pulmonary hypertension. Normal IVC size and collapse against an elevated central venous pressure. Fairly severe calcific aortic stenosis with mild insufficiency. Normal aortic dimensions. Mild mitral annular calcification with no more than very mild insufficiency. Normal appearing tricuspid valve with mild insufficiency. No apparent intracardiac mass or pericardial effusion. Should the patient to be experiencing anginal sounding chest pain, near-syncope/syncope or signs of congestive heart failure, we would recommend proceeding with cardiac catheterization with view to aortic valve replacement. Otherwise a followup study would be suggested in one year's time.
== END 2019-09-18 14:24 | DRG 884 ==
LOC: M ED 18:19 → M ED INP 23:38 → ENRESERV 09-15 00:17 → M MSPAV 09-15 03:30
PROVIDERS: ADMIT Internal Medicine; ATTEND Family Medicine
DX: F03.90 Unspecified dementia, unspecified severity, without behavioral disturbance, psychotic disturbance, mood disturbance, and anxiety (principal); N39.0 Urinary tract infection, site not specified; R29.6 Repeated falls; I10 Essential (primary) hypertension; E03.9 Hypothyroidism, unspecified; I35.8 Other nonrheumatic aortic valve disorders; M48.061 Spinal stenosis, lumbar region without neurogenic claudication; F32.9 Major depressive disorder, single episode, unspecified; K44.9 Diaphragmatic hernia without obstruction or gangrene; Z66 Do not resuscitate; M47.816 Spondylosis without myelopathy or radiculopathy, lumbar region; R53.81 Other malaise; Z90.49 Acquired absence of other specified parts of digestive tract; Z79.82 Long term (current) use of aspirin; Z79.899 Other long term (current) drug therapy; Z88.0 Allergy status to penicillin; Z88.8 Allergy status to other drugs, medicaments and biological substances